=== PATIENT | male | born 1935 | race Caucasian/White ===

== ENCOUNTER 2017-10-04 09:46 | Emergency (ER) | payer MEDICARE, OTHER, SELFPAY ==
[2017-10-04 09:47] VITALS: BP 162/105; PULSE 105; RESP 16; TEMP 36.4; O2SAT 98; BMI 23.6
--- NOTE | 2017-10-04 09:56 | RAD_ITS ---
STUDY: X-RAY - ABDOMEN/PELVIS REASON FOR EXAM: Male, 81 years old. Abdominal pain and constipation. TECHNIQUE: Two AP supine views of the abdomen and pelvis. COMPARISON: None. FINDINGS: Normal visualized lung bases. There is an unremarkable bowel gas pattern. There is no demonstrated free abdominal air. There is no obvious organomegaly, mass or dilated bowel. Multiple calcifications are visible in left upper quadrant probably secondary to splenic granulomas. There are calcified phleboliths in the pelvis. There are diffuse degenerative changes of the visualized lumbar spine. The bones appear osteopenic. RAD/Abdomen Single View IMPRESSION: Minimal stool is visible, making constipation unlikely. Electronically Signed: Shalini Chavez MD at 10:57 EDT , Service support ,
--- NOTE | 2017-10-04 10:09 | ED.VISSUMM ---
- ER Visit Summary Date of Service: 10/04/17 Chief Complaint: Abdominal discomfort and constipation History of Present Illness: The patient is a 81 M who presents because he has not had the results he expected after using glycerin tablets, glycerin suppositories and MiraLAX. He states he has been having difficulty since September 20. He denies nausea vomiting. He states he is still passing gas. He complains of abdominal discomfort and sense of uneasiness. He denies any dysuria, frequency, urgency hematuria. He reported that he believes he is impacted because when he inserted a glycerin suppository he had significant resistance. Please read written note for complete detail Physical Examination: Vital signs remarkable for an elevated blood pressure 162/105. Abdomen is soft nontender with decreased bowel sounds and slight tympany on percussion. There is no evidence of umbilical or inguinal hernia. exam is unremarkable. Rectal exam is remarkable for prior hemorrhoids. Digital exam reveals a significantly enlarged prostate. There is no stool in the rectal vault. Test Results: Single view x-ray of the abdomen reveals massive gas pattern with increased fecal matter Emergency Department Course and Treatment: No view x-ray of the abdomen was obtained to determine if he has significant amount of stool present or not. Treatment Plan: Patient was instructed to glass of MiraLAX every 1-2 hours until he has results Disposition: To home Impression: Abdominal discomfort secondary to obstipation/constipation This note was generated with [employer] dictation software. It may contain incorrect words, spelling, and punctuation that were not noted in review of the chart prior to signing ED Disposition - Plan for ED Patient: Disposition: Home or Assisted Living Chief Complaint: Constipation Instructions: ED Constipation Referrals: Skip Bishop MD [Primary Care Provider] - Additional Instructions: Drink 1 glass of MiraLAX every 1-2 hours until you have results
--- NOTE | 2017-10-04 10:13 | NURSING ---
NO LW OR POA
== END 2017-10-04 10:48 | disposition home or self-care (01) ==
PROVIDERS: Emergency Provider Emergency Medicine; Family Provider Family Medicine; PCP Family Medicine
DX: K59.00 Constipation, unspecified (principal); R10.9 Unspecified abdominal pain; N40.0 Benign prostatic hyperplasia without lower urinary tract symptoms; Z79.899 Other long term (current) drug therapy
CPT/HCPCS: 74018; 99282

== ENCOUNTER 2017-10-09 03:56 | Emergency (ER) | payer MEDICARE, OTHER, SELFPAY ==
[2017-10-09 03:57] VITALS: BP 191/92; PULSE 82; RESP 16; TEMP 36.3; O2SAT 98; BMI 23.2
--- NOTE | 2017-10-09 04:44 | ED.VISSUMM ---
- ER Visit Summary Date of Service: 10/09/17 Chief Complaint: [] Urinary obstruction History of Present Illness: The patient is a 81 M presents with a urinary retention for the last 3 weeks gradual intermittent. Suprapubic. He has a history of enlarged prostate and sees urology. He was seen in the emergency department a few days ago with constipation but this resolved with MiraLAX. He was started on antibiotic today for urinary tract infection as an outpatient Physical Examination: Vital signs reviewed General: Well-nourished well-developed Head: Normocephalic atraumatic Eyes: Pupils equal round and reactive to light extraocular movements intact ENT: TMs clear no hemotympanum no trauma Neck: Nontender full range of motion Cardiovascular: Regular rate rhythm no murmurs normal S1-S2 Respiratory: No distress clear to auscultation bilaterally chest nontender Abdomen: Soft pubic tenderness normal bowel sounds no masses Back: Nontender no CVA tenderness Extremities: Nontender active range of motion ?4 extremities no trauma Skin: Normal color no trauma Neuro alert oriented cranial nerves II through XII intact normal strength sensation reflexes Test Results: [] Emergency Department Course and Treatment: [] Bedside ultrasound showed a large bladder. Blackwood catheter placed with a liter out initially. Patient felt much better will be discharged with a leg bag. He will follow up with urology. Treatment Plan: [] Disposition: [] Impression: [] Acute urinary obstruction secondary to BPH This note was generated with [employer] dictation software. It may contain incorrect words, spelling, and punctuation that were not noted in review of the chart prior to signing ED Disposition - Plan for ED Patient: Chief Complaint: Complaint Referrals: Skip Bishop MD [Primary Care Provider] -
--- NOTE | 2017-10-09 04:45 | ED.DEP ---
ED Disposition - Plan for ED Patient: Disposition: Home or Assisted Living Chief Complaint: Complaint Instructions: ED Retention Urinary Male Referrals: Skip Bishop MD [Primary Care Provider] - Delta Yusuf MD [STAFF PHYSICIAN] -
[2017-10-09 05:28] VITALS: RESP 16
== END 2017-10-09 05:28 | disposition home or self-care (01) ==
PROVIDERS: Emergency Provider Emergency Medicine; Family Provider Family Medicine; PCP Family Medicine
DX: N40.1 Benign prostatic hyperplasia with lower urinary tract symptoms (principal); N13.8 Other obstructive and reflux uropathy; N39.0 Urinary tract infection, site not specified; Z79.899 Other long term (current) drug therapy
CPT/HCPCS: 51702; 99283

== ENCOUNTER 2017-10-25 09:35 | Day surgery (SDC) | payer MEDICARE, OTHER, SELFPAY ==
--- NOTE | 2017-10-21 13:19 | EKG12_ITS ---
Test Reason : PRE-OP Blood Pressure : / mmHG Vent. Rate : 075 BPM Atrial Rate : 075 BPM P-R Int : 158 ms QRS Dur : 086 ms QT Int : 382 ms P-R-T Axes : 073 043 049 degrees QTc Int : 426 ms Normal sinus rhythm with sinus arrhythmia Normal ECG Confirmed by REJI COLEY, CHELSIE ([id number]), newspaper editor managing ZOILA STEWART ([id number]) on 10/22/2017 2:33:21 PM Referred By: Delta Yusuf Confirmed By:CHELSIE MENDOZA MD
[2017-10-25] VITALS (11 sets, daily range): BP systolic 125–160; BP diastolic 72–93; PULSE 64–102; RESP 16–18; TEMP 36.2–36.9; O2SAT 96–100; BMI 23.5; BMI 23.4
--- NOTE | 2017-10-25 | IMM_PTH ---
PATIENT: SIVAKUMAR PEREZ LOC: [facility] [place] U#:[id number] AGE/SX: 81/M ROOM: RE10/25/[address]: Dr. Delta Yusuf MD : 1935 BED: DIS: 10/26/2017 SPEC #: [id number] RECD: 10/29/17 15:46 STATUS: DAYNA REQ #: [id number] BROWN: 10/25/17 00:[address]: Delta Yusuf DEPT: IMMUNOHISTOCHEMISTRY RECD BY: Madelin Morgan ENTERED: 10/29/17 15:47 SP TYPE: IMMUNO OTHR DR: Dr. Skip Bishop MD Tissues: A - Prostate, NOS Procedures: CK20 (add) CK7 (add) PSA (add) S-100 (add) PSA (initial) PHYSICIAN & INSTITUTION [place] [id number] SPECIMEN INFORMATION: Tissue Source: A ? Resection prostate tissue Clinical Info: Urinary retention, BPH with obstruction, nodular prostate with obstruction, elevated PSA Specimen Number: [id number] CPT code: 53554, 51555 x4 METHODOLOGY: Deparaffinized sections of prefer/formalin-fixed tissue or PAP/DQ stained slides are incubated with monoclonal/polyclonal antibodies/oligonucleotide probes. Localization is made via biotin free immunoperoxidase method. Appropriate controls are performed and reacted as expected. Results on target cell population are indicated in the following table: RESULTS: ANTIBODY / CLONE RESULT Block A1 PSAP (PASE/4LJ) positive PSA (ER-PR8) positive CK7 (OV-TL12/30) negative CK20 (KS20.8) negative S-100 (4C4.9) negative These tests were developed and their performance characteristics determined by [facility]. They may not have been cleared or approved by the U.S. Food and Drug Administration. The FDA has determined that such clearance or approval is not necessary. INTERPRETATION: A. Prostate tissue, resection: Prostatic carcinoma, Cornell grade 10 (5+5). AM:navjot 10/31/17
[2017-10-25] MEDS: Cefazolin 2 GM in 0.9% Normal Saline 100 ML IV (10:46)
--- NOTE | 2017-10-25 11:20 | PROS_PTH ---
PATIENT: SIVAKUMAR PEREZ COLIN LOC: [facility] [place] U#:[id number] AGE/SX: 81/M ROOM: RE10/25/[address]: Dr. Delta Yusuf MD : 1935 BED: DIS: 10/26/2017 SPEC #: [id number] RECD: 10/28/17 07:38 STATUS: DAYNA REMarcus #: [id number] BROWN: 10/25/17 11:[address]: Delta Yusuf DEPT: SURGICAL PATHOLOGY RECD BY: Sammy Gomez ENTERED: 10/28/17 11:04 SP TYPE: TURP OTHR DR: Dr. Skip Bishop MD Tissues: A - Prostate, NOS B - PROSTATE BIOPSY Procedures: Surgery Specimen Level IV HEADER OPERATION: Cysto, TUR prostate, Olympus, finger-guided transrectal prostate PRE-OP DIAGNOSIS: Urinary retention, BPH with obstruction, nodular prostate with obstruction, elevated PSA TISSUE SUBMITTED: A ? Resection prostate tissue, B ? Prostate biopsy MICROSCOPIC DIAGNOSIS A. Prostate, transurethral resection: Poorly differentiated prostatic adenocarcinoma: Michael grade: 10 (5+5) Number of chips involved by carcinoma: 100% Other findings: Benign nodular hyperplasia and mild chronic inflammation. Urothelium with no significant pathologic change. B. Prostate, needle core biopsy: Adenocarcinoma: [place] grade: 10 (5+5) Cores involved: 2/2 Tissue involved: 50% Greatest tumor length: 7 mm AM:navjot 10/29/17 COMMENT A. Immunohistochemistry ([id number]) supports the above diagnosis. MICROSCOPIC DESCRIPTION Slides are reviewed. GROSS DESCRIPTION A - Received is one container labeled with the patient's name and designated prostate tissue. The specimen consists of multiple irregular fragments of pink-chino, rubbery, soft tissue that in aggregate weigh 10.4 gm and measure in aggregate 6 x 6 x 0.7 cm. The entire specimen is submitted in ten cassettes. B - Received is one container designated prostate biopsy. The specimen consists of two elongated fragments of light chino-white soft tissue each measuring 1.5 cm in length and 0.1 cm in diameter. The specimen is totally submitted in one cassette. / AM:navjot 10/28/17 TC:0 CPT: 54463 x2
--- NOTE | 2017-10-25 12:00 | OP.PCM_ITS ---
Report of Operation Date of Procedure: 10/25/17 Pre-Operative Diagnosis: BPH with obstruction, hard prostate nodules Post-Operative Diagnosis: Transurethral resection of the prostate and transrectal prostate biopsy Surgery/Procedure Performed:: Transurethral resection of the prostate and transrectal prostate biopsy Description of Surgical Findings:: 81-year-old male was found to have BPH with obstruction on exam is as a very hard prostate concerning for prostate cancer. Today when taken the surgery to do the resection of the prostate to hopefully restore normal voiding and also into a prostate biopsy to rule out prostate cancer. I suspect he may have prostate cancer. 81-year-old male taken back to the operating room at the smooth induction of general anesthesia he was placed supine on the table and then in dorsal lithotomy position. The penis and testicles were prepped and draped in usual sterile fashion. Went into the bladder with a 26 Danish rigid resectoscope. The entire length of the urethra is normal the pendulous urethra is normal the sphincter was intact, inside of the prostate had obstruction from prostatic growth. I then got inside the prostate and the bladder, the prostate was extending onto the bladder neck and extending into the trigone area there was no identifiable ureter orfice. I then resected the prostate growth into the trigone and resect the trigone and then identified the right ureteral orifice which was resected and identified the left ureteral orifice was also resected both of these were clear of tumor and effluxing nicely, decided not to place stents, I then resected back to the verumontanum had very little lateral lobes most of the growth was from the prostate into the bladder trigone area causing obstruction once this was resected open then he had a nice wide open channel from the verumontanum into the bladder and very little resection towards the apex of the prostate given the concern for prostate cancer to make ozzie he maintains good bladder control. After resecting the prostate tissue then placed a three-way catheter into the bladder with 30cc with continuous bladder irrigation urine and the urine was nice and clear. I then double gloved did a digital rectal exam of the prostate and then used a guided figure biopsy and the 2 biopsies of the prostate transrectally. Patient was then taken back to the PACU in good condition with continuous bladder irrigation tissue from the prostate was sent off and tissue from the prostate biopsies were sent off. Type of Anesthesia:: General Drains: 3 way noriega. - Admit VTE Documentation VTE Present on Admission: No VTE Mechan Device Prophylaxis: SCD's VTE Pharm Prophylaxis ordered?: No Reason prophylaxis not ordered:: Treatment Not Indicated
[2017-10-25] MEDS: 0.9% Normal Saline 1,000 ML 75 ML IV (17:11)
[2017-10-25] MEDS: Tamsulosin HCl 0.4 MG Capsule PO (17:11)
[2017-10-26 03:00] VITALS: BP 117/75; PULSE 66; RESP 16; TEMP 36.4; O2SAT 97
[2017-10-26] MEDS: 0.9% Normal Saline 1,000 ML 75 ML IV (03:10)
--- NOTE | 2017-10-26 05:59 | NURSING ---
CBI stopped this am per physician order.
[2017-10-26 08:32] VITALS: BP 117/67; PULSE 60; RESP 18; TEMP 36.4; O2SAT 96
[2017-10-26] MEDS: Docusate Sodium 100 MG Capsule PO (08:37)
[2017-10-26] MEDS: Tamsulosin HCl 0.4 MG Capsule PO (08:37)
[2017-10-26] MEDS: Ciprofloxacin 500 MG Tablet PO (08:37)
[2017-10-26] MEDS: Finasteride 5 MG Tablet PO (08:37)
[2017-10-26] MEDS: Pantoprazole Sodium 40 MG Tablet PO (08:37)
--- NOTE | 2017-10-26 10:13 | PCM.DC.URO ---
Discharge Diet: Light diet - advance as tolerated Instructions: Transurethral Resection of the Prostate (TURP): Home Recovery Allergies/Adverse Reactions: Allergies No Known Allergies Allergy (Verified 10/25/17 10:00) Medications to take at Discharge Ciprofloxacin [Cipro] 250 mg PO BID 10/21/17 Ciprofloxacin [Cipro] 500 mg PO BID #14 tab 10/26/17 The following prescriptions were given: Ciprofloxacin [Cipro] 500 mg PO BID #14 tab Primary Care Physician: Skip Bishop MD [Primary Care Provider] - Please Follow Up With: Delta Yusuf MD When: SaturdayDecember 04 at 2:00 pm
[2017-10-26 14:34] VITALS: BP 125/69; PULSE 77; RESP 18; TEMP 35.6; O2SAT 97
== END 2017-10-26 14:45 | disposition home or self-care (01) ==
LOC: SDC 09:35 → AC 09:38 → MS2 12:48
PROVIDERS: Family Provider Family Medicine; PCP Family Medicine; Visit Provider Urology
PROC: (CPT 52630; principal; 2017-10-25 11:10)
DX: C61 Malignant neoplasm of prostate (principal); N41.1 Chronic prostatitis; N40.1 Benign prostatic hyperplasia with lower urinary tract symptoms; N40.3 Nodular prostate with lower urinary tract symptoms; N39.498 Other specified urinary incontinence; R33.8 Other retention of urine; R35.0 Frequency of micturition; R35.1 Nocturia; Z79.2 Long term (current) use of antibiotics; Z79.899 Other long term (current) drug therapy
CPT/HCPCS: 52630; 88305; 88341; 88342; 93005; J7030; J7120; J2405

== ENCOUNTER 2017-10-27 13:00 | Emergency (ER) | payer MEDICARE, OTHER, SELFPAY ==
[2017-10-27 13:01] VITALS: BP 135/85; PULSE 91; RESP 16; TEMP 37.1; O2SAT 98; BMI 23.6
[2017-10-27] MEDS: Lidocaine Jelly 2% 20 ML Syringe (URO-JET) 20 APPLIC TOPICAL (13:25)
[2017-10-27 13:48] LABS: Bacteria 0 SEEN /hpf (None Seen); Mucous, Urine 0 SEEN /hpf (<or=2+); Squamous Epithelial Cells - UA 0 SEEN /hpf (0-5)
[2017-10-27 13:50] LABS: Color, Urine Red (Yellow); Glucose, Dipstick Normal (Normal); Ketone-Dipstick Negative (Negative); Leukocyte Esterase-Dipstick 100 /ul (Negative); Nitrite-Dipstick Positive (Negative); Occult Blood-Urine 250 /ul (Negative); Protein-Dipstick 100 mg/dl (Negative); Specific Gravity, Urine 1.015 (1.002-1.030); Urine Bilirubin Dipstick Negative (Negative); Urine Clarity Cloudy (Clear); Urine Urobilinogen Normal (Normal)
--- NOTE | 2017-10-27 13:56 | ED.VISSUMM ---
- ER Visit Summary Date of Service: 10/27/17 Chief Complaint: Urinary retention History of Present Illness: The patient is a 81 M presents to the emergency department with acute urinary retention. The patient had a transurethral resection of the prostate on Saturday by Dr. Yusuf. He was discharged yesterday. Prior to discharge, the Blackwood was able to be removed and he was able to urinate. He states he urinated yesterday without issue. He was able to urinate some this morning and noticed a scant amount of blood. He states this afternoon, he was unable to pass any urine. Had increasing suprapubic fullness and some pain. He denies any fevers or chills. He is not on anticoagulants. Physical Examination: Exam is relatively unremarkable. Well-appearing male no acute distress. Head is normocephalic, atraumatic. Pupils equal and reactive, extraocular muscles intact. Neck supple. Heart regular rate and rhythm. Lungs clear. Abdomen soft, suprapubic fullness but no rebound guarding or peritoneal signs. No CVA tenderness. Extremities show no edema. Test Results: [] Emergency Department Course and Treatment: The patient had evidence of urinary obstruction. A Blackwood was able to be replaced. The patient had about 700 cc of blood-tinged urine output. He had complete resolution of symptoms. Urine does show some nitrites. The patient is already on Cipro. As he is recently postop, I did discuss the patient with Dr. Yusuf. Patient will continue his oral antibiotics. We will leave the Blackwood in place. He will call the office tomorrow morning for close follow-up. Family is comfortable with this plan of care. Treatment Plan: [] Disposition: Discharge Impression: 1. Acute urinary retention This note was generated with [employer] software. It may contain incorrect words, spelling, and punctuation that were not noted in review of the chart prior to signing ED Disposition - Plan for ED Patient: Chief Complaint: Complaint Instructions: ED Catheter Care Blackwood Referrals: Delta Yusuf MD [STAFF PHYSICIAN] - (Call tomorrow)
--- NOTE | 2017-10-27 13:59 | ED.DCSUM_ITS ---
- ER Visit Summary Date of Service: 10/27/17 Chief Complaint: Urinary retention History of Present Illness: The patient is a 81 M presents to the emergency department with acute urinary retention. The patient had a transurethral resection of the prostate on Saturday by Dr. Yusuf. He was discharged yesterday. Prior to discharge, the Blackwood was able to be removed and he was able to urinate. He states he urinated yesterday without issue. He was able to urinate some this morning and noticed a scant amount of blood. He states this afternoon, he was unable to pass any urine. Had increasing suprapubic fullness and some pain. He denies any fevers or chills. He is not on anticoagulants. Physical Examination: Exam is relatively unremarkable. Well-appearing male no acute distress. Head is normocephalic, atraumatic. Pupils equal and reactive, extraocular muscles intact. Neck supple. Heart regular rate and rhythm. Lungs clear. Abdomen soft, suprapubic fullness but no rebound guarding or peritoneal signs. No CVA tenderness. Extremities show no edema. Test Results: [] Emergency Department Course and Treatment: The patient had evidence of urinary obstruction. A Blackwood was able to be replaced. The patient had about 700 cc of blood-tinged urine output. He had complete resolution of symptoms. Urine does show some nitrites. The patient is already on Cipro. As he is recently postop , I did discuss the patient with Dr. Yusuf. Patient will continue his oral antibiotics. We will leave the Blackwood in place. He will call the office tomorrow morning for close follow-up. Family is comfortable with this plan of care. Treatment Plan: [] Disposition: Discharge Impression: 1. Acute urinary retention This note was generated with [employer] software. It may contain incorrect words, spelling, and punctuation that were not noted in review of the chart prior to signing ED Disposition - Plan for ED Patient: Chief Complaint: Complaint Instructions: ED Catheter Care Blackwood Referrals: Delta Yusuf MD [STAFF PHYSICIAN] - (Call tomorrow)
[2017-10-27 14:01] LABS: Red Blood Cells-Urine > 100 SEEN /hpf (0-5); White Blood Cells 0-5 SEEN /hpf (0-5)
[2017-10-27 14:34] VITALS: BP 130/78; PULSE 68; RESP 16; O2SAT 95
== END 2017-10-27 14:35 | disposition home or self-care (01) ==
PROVIDERS: Emergency Provider Emergency Medicine
DX: R33.9 Retention of urine, unspecified (principal); N40.1 Benign prostatic hyperplasia with lower urinary tract symptoms; I10 Essential (primary) hypertension; Z98.890 Other specified postprocedural states; Z79.2 Long term (current) use of antibiotics; Z79.899 Other long term (current) drug therapy
CPT/HCPCS: 51702; 81001; 99284; A4216

== ENCOUNTER → 2017-11-12 15:40 | Outpatient (CLI) | payer MEDICARE, OTHER, SELFPAY ==
--- NOTE | 2017-11-12 15:44 | CT_ITS ---
STUDY: CT ABDOMEN AND PELVIS WITH CONTRAST REASON FOR EXAM: Male, 82 years old. New diagnosis prostate cancer. Prior left inguinal hernia repair. RADIATION DOSAGE (If Supplied By Facility): CTDIvol = ( 15.05 ) mGy, DLP = ( 1421.18 ) mGycm TECHNIQUE: Transaxial images were obtained from the dome of the diaphragm to the symphysis pubis without oral contrast. 100ml ml of Isovue 300 contrast was administered. Sagittal and coronal images were reconstructed. Individualized dose optimization techniques were used for this CT. COMPARISON: 2 AP supine views of the abdomen and pelvis October 04, 2017. FINDINGS: There is pleural-parenchymal scarring at the lateral periphery of the inferior right lung base, as well as minor curvilinear scarring in the posterior medial inferior right lower lobe. Calcified granulomata are also seen in the basilar right lower lobe. There are shallow, fat-containing eventrations of the bilateral posterior hemidiaphragms. The heart size is normal. Mild atherosclerotic calcification in the coronary arteries and distal descending thoracic aorta. Normal liver. The patent portal vein diameter is 14.5 mm. Normal gallbladder and extrahepatic biliary system. There are multiple benign calcified granulomata of the spleen. Normal pancreas. Normal bilateral adrenal glands. Normal right kidney. Normal left kidney. No hydronephrosis. Normal visualized stomach. Normal small intestine. There are multiple left and sigmoid colonic diverticula consistent with diverticulosis. The appendix is visualized and appears normal. There is mild to moderate atherosclerotic calcification of the abdominal aorta and iliofemoral arteries with elongation and tortuosity, but without a demonstrated aneurysm. The infrarenal abdominal aortic diameters reach 2.35 x 2.3 cm. The right common iliac artery is 1.75 x 1.65 cm, while the left common iliac is 1.4 x 1.4 cm. There is 1.45 x 1.45 cm diameter fusiform ectasia of the left internal iliac artery, with mild medial mural thrombus. Normal inferior vena cava. Normal retroperitoneum. Medial thickness of the nondistended urinary bladder 6.5 mm. Apparent intraluminal density in the anterior base of the bladder on the reformations may be excreted contrast in the ureteral jets. The prostate gland is 4.1 x 4.4 x 3.95 cm (R35 cc). There is a shallow direct right-sided inguinal hernia containing adipose tissue. There are multilevel degenerative changes of the visualized lumbar spine. There is moderate depression of the superior L3 vertebral endplates, and more mild depression of the superior L2 endplate. There are degenerative changes of the sacroiliac joints, hips, and symphysis. CT/Abdomen/Pelvis W IV Cont ONLY IMPRESSION: 1. Prostate gland is upper normal in size without a focally defined mass. 2. Borderline mural thickening of the urinary bladder. Apparent intraluminal density in the anterior base of the bladder is thought to be excreted contrast in the bilateral ureteral jets rather than a mass. If clinically suspicious, bladder ultrasound could be useful. 3. No hydronephrosis. 4. Left and sigmoid colonic diverticulosis without acute diverticulitis. The appendix is normal. 5. Findings old calcified granulomatous disease. There is additional scarring in the visualized right lower lobe, as noted above. 6. Mild to moderate atherosclerotic calcification as well as fusiform ectasia of the thoracoabdominal aorta and iliofemoral arteries, as noted. 7. Shallow, fat-containing direct right inguinal hernia. 8. Fracture deformities of the L2 and L3 vertebra, the latter more significant. Additional degenerative changes in the spine and pelvis. Electronically Signed: Elias Dumas MD at 14:12 EDT , Service support ,
[2017-11-12 16:06] LABS: CREATININE FINGERSTICK 1.2 mg/dL (0.70-1.30); EGFR FINGERSTICK > 60.0000 mL/min (>60)
== END ==
PROVIDERS: Visit Provider Nurse Practitioner Adult Health
DX: R61 Generalized hyperhidrosis (principal)
CPT/HCPCS: 74177; Q9967

== ENCOUNTER → 2017-11-15 07:50 | Outpatient (CLI) | payer MEDICARE, OTHER, SELFPAY ==
--- NOTE | 2017-11-15 07:55 | NM_ITS ---
CLINICAL: 82-year-old male with reported history of primary prostate carcinoma. WHOLE BODY 99m Tc MDP RADIONUCLIDE BONE SCINTIGRAPHY COMPARISON: CT of the abdomen-pelvis report 11/12/2017 FINDINGS: Following the intravenous administration of 25.3 mCi of 99m Tc MDP, whole body bone images reveal: 1. Increased radiopharmaceutical concentration is demonstrated in the third lumbar vertebra posteriorly-anteriorly in the midline, to the right midline, right iliac crest, the right anterior-posterior first sacral segment. Corresponding sclerotic changes noted in the right iliac crest third lumbar vertebra (with associated compressive deformity) on review of CT of the abdomen-pelvis dated 11/12/2017 2. Enhanced uptake is demonstrated in the acromioclavicular and sternoclavicular compartments of both shoulders, the bilateral wrist articulations, the left knee. 3. The remaining skeletal structures are scintigraphically unremarkable with normal-appearing renal images and urinary bladder activity identified. NM/Bone Scan Whole Body IMPRESSION: 1. 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 2. 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 Electronically Signed: Kem Peraza DO at 13:20 EDT Tel , Service support ,
== END ==
PROVIDERS: Visit Provider Nurse Practitioner Adult Health
DX: C61 Malignant neoplasm of prostate (principal)
CPT/HCPCS: 78306

== ENCOUNTER → 2017-11-18 17:05 | Outpatient (CLI) | payer MEDICARE, OTHER, SELFPAY | PROVIDERS: Visit Provider Urology | DX: C61 Malignant neoplasm of prostate (principal) | CPT/HCPCS: 36415; 84153 ==

== ENCOUNTER → 2017-12-20 10:29 | Outpatient (CLI) | payer MEDICARE, OTHER, SELFPAY ==
[2017-12-20 12:22] LABS: PSA,Total- Diagnostic 3.87 ng/mL (0.0-4.0)
== END ==
PROVIDERS: Family Provider Internal Medicine; PCP Internal Medicine; Visit Provider Urology
DX: C61 Malignant neoplasm of prostate (principal)
CPT/HCPCS: 36415; 84153

== ENCOUNTER → 2017-12-27 09:52 | Outpatient (CLI) | payer MEDICARE, OTHER, SELFPAY ==
--- NOTE | 2017-12-27 10:45 | MRI_ITS ---
STUDY: MR PELVIS WITHOUT CONTRAST REASON FOR EXAM: Male, 82 years old. Newly diagnosed prostrate carcinoma. TECHNIQUE: Standardized fat and water weighted pulse sequences were obtained in all 3 orthogonal planes. COMPARISON: CT abdomen/pelvis: 11/12/2017. FINDINGS: The prostate is enlarged, 5.7 x 4.8 x 5.1 cm in size and is seen irregularly extending superiorly into the bladder base/lumen. There is heterogenous signal intensity of the central and peripheral zones of the gland evident with multiple degenerated/cystic nodules. A few T2 weighted suspicious hypointense foci are seen within the peripheral zone of the gland, the largest is 1.4 x 1.2 cm present in the left side. There is prostatic capsular smooth bulge. No significant stranding of fat outside the prostrate demonstrated. Seminal vesicles appear symmetric bilaterally. No significant pelvic lymphadenopathy demonstrated. There is diffuse wall thickening of the urinary bladder. Several small bladder diverticuli are present bilaterally. Unremarkable visualized small intestine. There are multiple colonic diverticula of the sigmoid colon consistent with chronic diverticulosis. Increased colonic stool volume. There is no pelvic fluid. There is diffuse atherosclerotic calcification of the pelvic arteries with elongation and tortuosity. There are diffuse degenerative changes of the visualized lumbar spine. MRI/Pelvis (Routine) IMPRESSION: 1. Abnormal appearing enlarged prostrate gland seen with extension into the bladder lumen and with suspicious T2 weighted hypointense nodules, largest is 1.4 cm at the left side. Biopsy with tissue diagnosis is recommended. 2. Smooth bulging of the glandular capsule. No demonstrated significant pelvic lymphadenopathy. 3. Diffuse urinary bladder wall thickening. Multiple small bladder diverticuli. 4. Significant sigmoid diverticulosis. Electronically Signed: Paramjit Cramer MD at 9:56 EDT Tel , Service support ,
== END ==
PROVIDERS: Family Provider Internal Medicine; PCP Internal Medicine; Visit Provider Urology
DX: C61 Malignant neoplasm of prostate (principal)
CPT/HCPCS: 72195

== ENCOUNTER → 2018-01-22 08:13 | Outpatient (CLI) | payer MEDICARE, OTHER, SELFPAY ==
[2018-01-17 11:30] LABS: Absolute Lymphocyte Count 1.86 X10^3/ul (0.83-4.51); Absolute Neutrophil Count 3.2 X10^3/uL (2.0-7.7); Basophil# 0.02 X10^3/uL; Basophil% 0.4 % (0-1); Eosinophil# 0.12 X10^3/uL; Eosinophils% 2.1 % (0-5); Hematocrit 40.1 % (40-54); Lymphocyte # 1.86 X10^3/ul (4.0); Lymphocyte % 32.7 % (19-41); Mean Corp Hgb Conc 32.4 g/gl (32-36); Mean Corpuscular Hgb 30.5 pg (27.0-32.0); Mean Corpuscular Volume 94.1 fL (80-94); Mean Platelet Vol. 10.4 fl (6.2-12.0); Monocyte# 0.45 X10^3/uL; Monocyte% 7.9 % (0-10); Neutrophil # 3.24 X10^3/uL (2.7-7.7); Neutrophil % 56.9 % (47-70); Platelet Count 223 K/mm3 (150-450); RBC Distribution Width CV 13.6 % (11.6-14.6); RBC Distribution Width SD 46.6 fl (35.1-43.9); Red Blood Count 4.26 M/mm3 (4.6-6.2); White Blood Count 5.7 K/mm3 (4.4-11.0)
[2018-01-17 11:31] LABS: POSITIVE COUNT NO; POSITIVE DIFFERENTIAL NO; POSITIVE MORPHOLOGY NO
[2018-01-17 11:44] LABS: Creatinine, Serum 1.13 mg/dL (0.70-1.30); EST Glomerular Filtration Rate 66 mL/min (>60); Est Glom Filt Rate - Afr Amer 80 mL/min (>60)
--- NOTE | 2018-01-22 08:14 | CT_ITS ---
STUDY: CT PELVIS WITH CONTRAST REASON FOR EXAM: Male, 82 years old. Radiation treatment examination for prostate cancer. RADIATION DOSAGE (If Supplied By Facility): CTDIvol = ( 24.13 ) mGy, DLP = ( 929.81 ) mGycm TECHNIQUE: Transaxial imaging of the pelvis was performed without oral contrast. 100 ml of Isovue 300 contrast was administered intravenously. Individualized dose optimization techniques were used for this CT. COMPARISON: Comparison is made with prior study dated November 12, 2017. FINDINGS: Normal urinary bladder. The prostate measures 4.1 cm x 3.5 cm. Metallic seeds are seen within the prostate gland. The gland causes indentation at the bladder base. Is evidence of a dilatation of the visualized portion of the left ureter. No contrast is seen within the left ureter. Normal visualized small intestine. There are multiple colonic diverticula of the sigmoid colon consistent with chronic diverticulosis. There is no pelvic fluid. There is no pelvic lymphadenopathy or mass lesion. There is diffuse atherosclerotic calcification of the pelvic arteries. Ectasia of both common iliac arteries. Small to moderate size right inguinal hernia containing nonobstructed bowel. There are diffuse degenerative changes of the visualized lumbar spine. There is a 1.9 cm sclerotic focus in the right iliac bone suggestive of metastatic disease. A small 1 cm sclerotic lesion is also seen in the inferior aspect of the right iliac wing. Subcentimeters sclerotic focus involving the posterior aspect of the right iliac bone adjacent to the right sacroiliac joint. Several small sclerotic lesions are seen in the region of the left acetabulum. Bony metastasis should be ruled out. CT/CT Pelvis W/CONT Therapy IMPRESSION: Enlarged prostate. Metallic seeds are seen within the prostate. Dilated left ureter. 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 Electronically Signed: Venu Quinones MD at 8:36 EDT Tel [phone], Service support ,
== END ==
PROVIDERS: Family Provider Internal Medicine; PCP Internal Medicine; Visit Provider Radiology Radiation Oncology
DX: Z01.818 Encounter for other preprocedural examination (principal); C61 Malignant neoplasm of prostate
CPT/HCPCS: 36415; 51600; 72193; 82565; 85025; Q9967

== ENCOUNTER 2018-02-14 15:37 | Observation (INO) | payer MEDICARE, OTHER, SELFPAY ==
[2018-02-14] VITALS (8 sets, daily range): BP systolic 136–156; BP diastolic 67–104; PULSE 63–97; RESP 16–23; TEMP 36.2–36.6; O2SAT 95–99; BMI 24.3; BMI 24.8; BMI 24.9
--- NOTE | 2018-02-14 16:01 | RAD_ITS ---
STUDY: X-RAY CHEST REASON FOR EXAM: Male, 82 years old. Chest pain/pressure. TECHNIQUE: Single AP portable view of the chest. COMPARISON: None. FINDINGS: Lung leigh are well-expanded without major consolidation, focal atelectasis or pleural effusion. Calcified granulomata bilaterally. Normal size heart. Numerous calcified mediastinal and hilar lymph nodes. Normal visualized pulmonary arteries. There is atherosclerotic calcification of the aortic arch with tortuosity. There are diffuse degenerative changes of the visualized thoracic spine. Normal visualized ribs, clavicles, and shoulders. There is no demonstrated abnormality of the visualized soft tissue structures of the upper abdomen. RAD/Chest 1 View (Portable) IMPRESSION: Negative for consolidation, focal atelectasis, cardiomegaly or pleural effusion. Stigmata of prior granulomatous disease. Atherosclerotic changes of the thoracic aorta. Electronically Signed: Radha Cancino MD at 16:56 EDT , Service support ,
--- NOTE | 2018-02-14 16:01 | ED.VIS.GEN ---
History of Present Illness Chief Complaint: Palpitations Informant: Patient Onset: Today, Hours - 4-6 Context: Gradual Onset - since after 9am radiation therapy sometime Timing: Intermittent Quality: beating hard and can feel it throughout my body; not irregular/skipping Location: chest Current Severity: Moderate Maximum Severity: Moderate Worsened by: nothing Relieved by: nothing Associated Symptoms: chest pressure, gen weakness Narrative: Currently getting radiation therapy for bladder/prostate cancer, as described by the patient. He is only getting radiation therapy in his suprapubic region, his last treatment was this morning and symptoms started afterwards. He has never had these symptoms before. He has no history of heart problems and has never had a stress test. Denies any lightheadedness, near syncope, shortness of breath. Mostly the discomfort in his chest is nonpleuritic but there is a slight right-sided discomfort that he gets when taking a deep breath. No leg pain or swelling. No history of DVT or PE. Not undergoing systemic chemotherapy. No nausea, vomiting, arm discomfort, neck or jaw discomfort, or back discomfort. No changes with exertion/rest. - Past Medical History (1) Prostate cancer Status: Chronic Past Medical History - Allergies and Home Meds Allergies/Adverse Reactions: Allergies No Known Allergies Allergy (Verified 02/14/18 15:37) Primary Care Physician: Sarath Wallace MD [Primary Care Provider] - Lives: Alone Smoking Status: Never smoker Alcohol: None Drugs: None Review of Systems All systems negative except as indicated General: Reports: Malaise - generalized weakness ENT: Denies: Rhinorrhea, Sore throat Cardiovascular: Reports: Chest pain, Palpitations. Denies: Heart racing Respiratory: Denies: Dyspnea, Cough, Dyspnea on exertion, Orthopnea Gastrointestinal: Denies: Abdominal pain, Nausea, Vomiting, Diarrhea, Constipation, Melena, Hematochezia Musculoskeletal: Denies: Myalgias, Neck pain, Back pain, Swelling, Extremity Pain Skin: Denies: Rash Neurological: Denies: Headache, Parasthesia Endocrine: Denies: Polyuria, Polydipsia Hematologic: Denies: Easy bruising, Easy bleeding Allergy: Denies: Swelling of the mouth, Swelling of the tongue Physical Exam Vital Signs/Narrative: Vital Signs Temp Pulse Resp BP Pulse Ox 02/14/18 15:38 97.9 F 90 20 H 156/104 H 97 Inital Vital Signs reviewed: Yes General: Well nourished, Well developed Head: Normocephalic, Atraumatic Eyes: Perrl, EOMI ENT: Moist mucous membranes, No rhinorrhea Neck: Supple, Nontender, No lymphadenopathy, No JVD Cardiovascular: Regular rate, Regular rhythm - w/ occasional irregularity, No murmurs, Normal S1, Normal S2 Respiratory: No distress, CTA bilaterally, Chest nontender, - - no splinting w/ deep inspiration Abdomen: Soft, Nontender, Nondistended, Normal bowel sounds Back: Nontender, Normal Inspection. Negative for: CVA tenderness Extremities: Nontender - no calf tenderness, No edema Skin: Normal color, No rash Neurological: Alert, Oriented x3, Cranial nerves II-XII grossly intact, Normal Strength, Normal Sensation Psychological: Normal affect Diagnostic/Tx/Re-eval Impressions Chest X-Ray 02/14/18 16:01 IMPRESSION: Negative for consolidation, focal atelectasis, cardiomegaly or pleural effusion. Stigmata of prior granulomatous disease. Atherosclerotic changes of the thoracic aorta. Electronically Signed: Radha Cancino MD at 16:56 EDT , Service support , 02/14/18 16:01 Chest 1 View (Portable) [RAD] Stat Laboratory Results 02/14/18 02/14/18 02/14/18 Range/Units 16:15 16:15 16:15 WBC 4.9 (4.4-11.0) K/mm3 RBC 4.18 L (4.6-6.2) M/mm3 Hgb 13.0 (13.0-16.5) g/dl Hct 39.1 L (40-54) % MCV 93.5 (80-94) fL MCH 31.1 (27.0-32.0) pg MCHC 33.2 (32-36) g/gl RDW 13.3 (11.6-14.6) % RDW Differential 45.7 H (35.1-43.9) fl Plt Count 147 L (150-450) K/mm3 MPV 10.1 (6.2-12.0) fl Immature Gran % (Auto) 0.200 (0.0-0.9) % Neut % (Auto) 68.2 (47-70) % Lymph % (Auto) 18.3 L (19-41) % [place] % (Auto) 11.7 H (0-10) % Eos % (Auto) 1.4 (0-5) % Baso % (Auto) 0.2 (0-1) % Absolute Neuts (auto) 3.3 (2.0-7.7) X10^3/uL Absolute Lymphs (auto) 0.89 (0.83-4.51) X10^3/ul Total Counted Not Reportable D-Dimer Quant (PE/DVT) 0.58 H* (0.27-0.49) FEU/ug/m Sodium 144 (136-145) mmol/L Potassium 4.0 (3.5-5.1) mmol/L Chloride 107 (98-107) mmol/L Carbon Dioxide 29.0 (21.0-32.0) mmol/L Anion Gap 8 (5-15) BUN 22 H (7-18) mg/dL Creatinine 1.23 (0.70-1.30) mg/dL Estim Creat Clear Calc 46.30 ml/min Est GFR (MDRD) Af Amer 72 (>60) mL/min Est GFR (MDRD) Non-Af 60 (>60) mL/min BUN/Creatinine Ratio 17.9 (10-20) RATIO Glucose 91 (74-106) mg/dL Calcium 9.2 (8.5-10.1) mg/dL Troponin I < 0.015 (<0.045) ng/mL - Rhythm Strip Rhythm Strip: Sinus Rhythm Rate: 90 Ectopy: PVC(s) - EKG Initial EKG Interpretation: Sinus Rhythm, No Acute Injury Pattern, - - multifocal PVCs - Medical Decision Making Patient was given aspirin. Prior to getting nitroglycerin, he states that his chest pressure resolves. Troponin is negative, EKG shows no acute injury pattern, but shows multifocal PVCs that he may or may not be symptomatically from, he is not describing a typical feeling of intermittent PVCs. He recently had eyelid surgery. His d-dimer returned at 0.58, and with age correction, the upper limit of normal becomes 0.82, placing him well within normal limits and negating the necessity for further testing to rule out pulmonary embolus at this time. He states he has never had a stress test. Given some reactive risk, plan is for inpatient observation and further evaluation and risk stratification rule out acute coronary syndrome. ED Disposition - Plan for ED Patient: Disposition: Acute Care Hospital [facility] Chief Complaint: Palpitations Diagnosis: Palpitations, Chest pain, unspecified Referrals: Sarath Wallace MD [Primary Care Provider] -
--- NOTE | 2018-02-14 16:06 | ED.DCSUM_ITS ---
History of Present Illness Chief Complaint: Palpitations Informant: Patient Onset: Today, Hours - 4-6 Context: Gradual Onset - since after 9am radiation therapy sometime Timing: Intermittent Quality: beating hard and can feel it throughout my body; not irregular/ skipping Location: chest Current Severity: Moderate Maximum Severity: Moderate Worsened by: nothing Relieved by: nothing Associated Symptoms: chest pressure, gen weakness Narrative: Currently getting radiation therapy for bladder/prostate cancer, as described by the patient. He is only getting radiation therapy in his suprapubic region, his last treatment was this morning and symptoms started afterwards. He has never had these symptoms before. He has no history of heart problems and has never had a stress test. Denies any lightheadedness, near syncope, shortness of breath. Mostly the discomfort in his chest is nonpleuritic but there is a slight right-sided discomfort that he gets when taking a deep breath. No leg pain or swelling. No history of DVT or PE. Not undergoing systemic chemotherapy. No nausea, vomiting, arm discomfort, neck or jaw discomfort, or back discomfort. No changes with exertion/rest. - Past Medical History (1) Prostate cancer Status: Chronic Past Medical History - Allergies and Home Meds Allergies/Adverse Reactions: Allergies No Known Allergies Allergy (Verified 02/14/18 15:37) Primary Care Physician: Sarath Wallace MD [Primary Care Provider] - Lives: Alone Smoking Status: Never smoker Alcohol: None Drugs: None Review of Systems All systems negative except as indicated General: Reports: Malaise - generalized weakness ENT: Denies: Rhinorrhea, Sore throat Cardiovascular: Reports: Chest pain, Palpitations. Denies: Heart racing Respiratory: Denies: Dyspnea, Cough, Dyspnea on exertion, Orthopnea Gastrointestinal: Denies: Abdominal pain, Nausea, Vomiting, Diarrhea, Constipation, Melena, Hematochezia Musculoskeletal: Denies: Myalgias, Neck pain, Back pain, Swelling, Extremity Pain Skin: Denies: Rash Neurological: Denies: Headache, Parasthesia Endocrine: Denies: Polyuria, Polydipsia Hematologic: Denies: Easy bruising, Easy bleeding Allergy: Denies: Swelling of the mouth, Swelling of the tongue Physical Exam Vital Signs/Narrative: Vital Signs Temp Pulse Resp BP Pulse Ox 02/14/18 15:38 97.9 F 90 20 H 156/104 H 97 Inital Vital Signs reviewed: Yes General: Well nourished, Well developed Head: Normocephalic, Atraumatic Eyes: Perrl, EOMI ENT: Moist mucous membranes, No rhinorrhea Neck: Supple, Nontender, No lymphadenopathy, No JVD Cardiovascular: Regular rate, Regular rhythm - w/ occasional irregularity, No murmurs, Normal S1, Normal S2 Respiratory: No distress, CTA bilaterally, Chest nontender, - - no splinting w/ deep inspiration Abdomen: Soft, Nontender, Nondistended, Normal bowel sounds Back: Nontender, Normal Inspection. Negative for: CVA tenderness Extremities: Nontender - no calf tenderness, No edema Skin: Normal color, No rash Neurological: Alert, Oriented x3, Cranial nerves II-XII grossly intact, Normal Strength, Normal Sensation Psychological: Normal affect Diagnostic/Tx/Re-eval Impressions Chest X-Ray 02/14/18 16:01 IMPRESSION: Negative for consolidation, focal atelectasis, cardiomegaly or pleural effusion. Stigmata of prior granulomatous disease. Atherosclerotic changes of the thoracic aorta. Electronically Signed: Radha Cancino MD at 16:56 EDT , Service support , 02/14/18 16:01 Chest 1 View (Portable) [RAD] Stat Laboratory Results 02/14/18 02/14/18 02/14/18 Range/Units 16:15 16:15 16:15 WBC 4.9 (4.4-11.0) K/mm3 RBC 4.18 L (4.6-6.2) M/mm3 Hgb 13.0 (13.0-16.5) g/dl Hct 39.1 L (40-54) % MCV 93.5 (80-94) fL MCH 31.1 (27.0-32.0) pg MCHC 33.2 (32-36) g/gl RDW 13.3 (11.6-14.6) % RDW Differential 45.7 H (35.1-43.9) fl Plt Count 147 L (150-450) K/mm3 MPV 10.1 (6.2-12.0) fl Immature Gran % (Auto) 0.200 (0.0-0.9) % Neut % (Auto) 68.2 (47-70) % Lymph % (Auto) 18.3 L (19-41) % [place] % (Auto) 11.7 H (0-10) % Eos % (Auto) 1.4 (0-5) % Baso % (Auto) 0.2 (0-1) % Absolute Neuts (auto) 3.3 (2.0-7.7) X10^3/uL Absolute Lymphs (auto) 0.89 (0.83-4.51) X10^3/ul Total Counted Not Reportable D-Dimer Quant (PE/DVT) 0.58 H* (0.27-0.49) FEU/ug/m Sodium 144 (136-145) mmol/L Potassium 4.0 (3.5-5.1) mmol/L Chloride 107 (98-107) mmol/L Carbon Dioxide 29.0 (21.0-32.0) mmol/L Anion Gap 8 (5-15) BUN 22 H (7-18) mg/dL Creatinine 1.23 (0.70-1.30) mg/dL Estim Creat Clear Calc 46.30 ml/min Est GFR (MDRD) Af Amer 72 (>60) mL/min Est GFR (MDRD) Non-Af 60 (>60) mL/min BUN/Creatinine Ratio 17.9 (10-20) RATIO Glucose 91 (74-106) mg/dL Calcium 9.2 (8.5-10.1) mg/dL Troponin I < 0.015 (<0.045) ng/mL - Rhythm Strip Rhythm Strip: Sinus Rhythm Rate: 90 Ectopy: PVC(s) - EKG Initial EKG Interpretation: Sinus Rhythm, No Acute Injury Pattern, - - multifocal PVCs - Medical Decision Making Patient was given aspirin. Prior to getting nitroglycerin, he states that his chest pressure resolves. Troponin is negative, EKG shows no acute injury pattern, but shows multifocal PVCs that he may or may not be symptomatically from, he is not describing a typical feeling of intermittent PVCs. He recently had eyelid surgery. His d-dimer returned at 0.58, and with age correction, the upper limit of normal becomes 0.82, placing him well within normal limits and negating the necessity for further testing to rule out pulmonary embolus at this time. He states he has never had a stress test. Given some reactive risk , plan is for inpatient observation and further evaluation and risk stratification rule out acute coronary syndrome. ED Disposition - Plan for ED Patient: Disposition: Acute Care Hospital [facility] Chief Complaint: Palpitations Diagnosis: Palpitations, Chest pain, unspecified Referrals: Sarath Wallace MD [Primary Care Provider] -
[2018-02-14] MEDS: Aspirin 81 MG TAB.CHEW 324 MG PO (16:16)
[2018-02-14 16:28] LABS: Absolute Lymphocyte Count 0.89 X10^3/ul (0.83-4.51); Absolute Neutrophil Count 3.3 X10^3/uL (2.0-7.7); Basophil# 0.01 X10^3/uL; Basophil% 0.2 % (0-1); Eosinophil# 0.07 X10^3/uL; Eosinophils% 1.4 % (0-5); Hematocrit 39.1 % (40-54); Lymphocyte # 0.89 X10^3/ul (4.0); Lymphocyte % 18.3 % (19-41); Mean Corp Hgb Conc 33.2 g/gl (32-36); Mean Corpuscular Hgb 31.1 pg (27.0-32.0); Mean Corpuscular Volume 93.5 fL (80-94); Mean Platelet Vol. 10.1 fl (6.2-12.0); Monocyte# 0.57 X10^3/uL; Monocyte% 11.7 % (0-10); Neutrophil # 3.31 X10^3/uL (2.7-7.7); Neutrophil % 68.2 % (47-70); Platelet Count 147 K/mm3 (150-450); RBC Distribution Width CV 13.3 % (11.6-14.6); RBC Distribution Width SD 45.7 fl (35.1-43.9); Red Blood Count 4.18 M/mm3 (4.6-6.2); White Blood Count 4.9 K/mm3 (4.4-11.0)
[2018-02-14 16:29] LABS: POSITIVE COUNT NO; POSITIVE DIFFERENTIAL NO; POSITIVE MORPHOLOGY NO
[2018-02-14 16:44] LABS: Anion Gap 8 (5-15); BUN 22 mg/dL (7-18); BUN/Creat Ratio 17.9 RATIO (10-20); Calcium,Total 9.2 mg/dL (8.5-10.1); Chloride 107 mmol/L (98-107); Creatinine, Serum 1.23 mg/dL (0.70-1.30); EST Glomerular Filtration Rate 60 mL/min (>60); Est Glom Filt Rate - Afr Amer 72 mL/min (>60); Glucose 91 mg/dL (74-106); Sodium Level 144 mmol/L (136-145)
[2018-02-14 16:45] LABS: D-Dimer Quantitative (DVT/PE) 0.58 FEU/ug/m (0.27-0.49)
--- NOTE | 2018-02-14 16:46 | ED.RN ---
DDIMER 0.58 CALL[address] FROM THE LAB. DR WALDRON AWARE
--- NOTE | 2018-02-14 18:13 | PCM.HP.STD ---
Problem List (1) Chest pain, unspecified Status: Acute (2) Palpitations Status: Acute History of Present Illness Date of Admission: 02/14/18 Chief Complaint: chest pain The patient is a 82 year old M who is undergoing creation treatment for prostate cancer where he started feeling some chest pressure and fluttering across his chest. Persisted until he came to the emergency room and Atrovent aspirin and nitroglycerin. It is since resolved. Patient has never had anything like this before. Patient had cardiac workup in the emergency room which was unremarkable except for noting some PVCs on EKG and telemetry. Patient being admitted under observation status for further chest pain evaluation. Patient states that he did feel tired with this. [] Past Medical History Past Medical History (Chronic Problems): Chronic Problems (Last Updated 02/14/18 @ 18:15 by John Schwarz DO) Prostate cancer (Chronic) Medical History: Medical History (Last Updated 02/14/18 @ 18:15 by John Schwarz DO) Prostate cancer C61 HTN (hypertension) I10 Allergies No Known Allergies Allergy (Verified 02/14/18 15:37) Home Medications: Ambulatory Orders Medication Instructions Recorded Dutasteride [Avodart] 0.5 mg PO QHS 10/27/17 Amlodipine [Norvasc] 1.25 mg PO QHS 02/14/18 Doxazosin Mesylate [Cardura] 2 mg PO DAILY 02/14/18 Lives: Alone Smoking Status: Never smoker Alcohol: None Drugs: None - *Family History Maternal History Items: - - No heart disease Review of Systems Constitutional: Reports: Weakness. Denies: Chills, Fever, Weight Change Eyes: Denies: Blurred vision, Double vision HEENT: Denies: Head Aches, Sinus Congestion, Sinus Drainage Cardiovascular: Reports: Chest Pain, Palpitations. Denies: Edema Respiratory: Denies: Cough, Shortness of breath at rest, Sputum production Gastrointestinal: Denies: Abdominal Pain, Nausea, Vomiting Genitourinary: Reports: - - Did have urinary retention prior to his prostate cancer being diagnosed but that has subsequently resolved.. Denies: Dysuria Musculoskeletal: Denies: Joint Pain, Joint Tenderness Skin: Denies: Rash, Wounds Neurological: Denies: Numbness, Tingling, Focal weakness Psychiatric: Denies: Anxiety, Depression Hematologic/ Lymphatic: Denies: Easy Bruising, Easy Bleeding, Hx of blood clot Comment: All review of systems are negative except as mentioned in the history of present illness and the other review of systems. VTE Information - Inpt Only VTE Present on Admission: No VTE Mechan Device Prophylaxis: None VTE Pharm Prophylaxis ordered?: Yes Patient Problems: Active and Suspected Problems (Last Updated 02/14/18 @ 18:15 by John Schwarz DO) Palpitations (Acute) Chest pain, unspecified (Acute) - Physical Exam General: Alert, No apparent distress HEENT: Atraumatic, Normocephalic Oral: Moist Mucosa, No Gingival or Mucosal Lesions/ Ulcerations Neck: No Nodes, Thyroid Normal Size and Texture Lungs: Clear to auscultation, Normal air movement, No rhonchi, No wheeze Cardiovascular: Regular rate, Regular Rhythm, Normal S1, Normal S2, No murmurs Abdomen: Bowel Sounds Present, Soft, Non Tender, Non-Distended Extremities: No edema, No Calf Tenderness Skin: No rashes, No breakdown Musculoskeletal: No Tenderness to Palpation of Joints or Extremities, No Muscle Wasting Psych/Mental Status: Normal Affect, Appropriate Vital Signs Temp Pulse Resp BP Pulse Ox 36.6 C 73 16 136/81 H 99 02/14/18 15:38 02/14/18 17:32 02/14/18 17:32 02/14/18 17:32 02/14/18 16:19 Oxygen Delivery Method Room Air Weight: 74.8 kg Body Mass Index (BMI) 24.3 Laboratory Tests Past 24 Hrs 02/14/18 02/14/18 02/14/18 16:15 16:15 16:15 WBC 4.9 RBC 4.18 L Hgb 13.0 Hct 39.1 L MCV 93.5 MCH 31.1 MCHC 33.2 RDW 13.3 RDW Differential 45.7 H Plt Count 147 L MPV 10.1 Immature Gran % (Auto) 0.200 Neut % (Auto) 68.2 Lymph % (Auto) 18.3 L [place] % (Auto) 11.7 H Eos % (Auto) 1.4 Baso % (Auto) 0.2 Absolute Neuts (auto) 3.3 Absolute Lymphs (auto) 0.89 Total Counted Not Reportable D-Dimer Quant (PE/DVT) 0.58 H* Sodium 144 Potassium 4.0 Chloride 107 Carbon Dioxide 29.0 Anion Gap 8 BUN 22 H Creatinine 1.23 Estim Creat Clear Calc 46.30 Est GFR (MDRD) Af Amer 72 Est GFR (MDRD) Non-Af 60 BUN/Creatinine Ratio 17.9 Glucose 91 Calcium 9.2 Troponin I < 0.015 EKG reviewed and showed normal sinus with no acute process. PVCs were noted. Clinical Impression(s) from Imaging Studies Chest X-Ray 02/14/18 16:01 IMPRESSION: Negative for consolidation, focal atelectasis, cardiomegaly or pleural effusion. Stigmata of prior granulomatous disease. Atherosclerotic changes of the thoracic aorta. Electronically Signed: Radha Cancino MD at 16:56 EDT , Service support , Assessment/Plan All Active Problems (Last Updated 02/14/18 @ 18:15 by John Schwarz DO) Palpitations (Acute) Chest pain, unspecified (Acute) 1. Chest pain Heart score of 5 and a MASSIEL score of 2 Patient be admitted and undergo a nuclear stress test on the In the meantime, we will cycle troponins and check a lipid panel in the morning 2. Palpitations Patient noticing fluttering in his chest Patient with PVCs on the monitor No evidence of any atrial fibrillation or ventricular tachycardia at this point in time 3. Prostate cancer Follow-up with radiation oncology to continue with his radiation treatments as previously prescribed 4. DVT prophylaxis with Lovenox Code Visit OBSV E&M: 51237 Initial observation care L2
--- NOTE | 2018-02-14 18:19 | HP.PCM_ITS ---
Problem List (1) Chest pain, unspecified Status: Acute (2) Palpitations Status: Acute History of Present Illness Date of Admission: 02/14/18 Chief Complaint: chest pain The patient is a 82 year old M who is undergoing creation treatment for prostate cancer where he started feeling some chest pressure and fluttering across his chest. Persisted until he came to the emergency room and Atrovent aspirin and nitroglycerin. It is since resolved. Patient has never had anything like this before. Patient had cardiac workup in the emergency room which was unremarkable except for noting some PVCs on EKG and telemetry. Patient being admitted under observation status for further chest pain evaluation. Patient states that he did feel tired with this. [] Past Medical History Past Medical History (Chronic Problems): Chronic Problems (Last Updated 02/14/18 @ 18:15 by John Schawrz DO) Prostate cancer (Chronic) Medical History: Medical History (Last Updated 02/14/18 @ 18:15 by John Schwarz DO) Prostate cancer C61 HTN (hypertension) I10 Allergies No Known Allergies Allergy (Verified 02/14/18 15:37) Home Medications: Ambulatory Orders Medication Instructions Recorded Dutasteride [Avodart] 0.5 mg PO QHS 10/27/17 Amlodipine [Norvasc] 1.25 mg PO QHS 02/14/18 Doxazosin Mesylate [Cardura] 2 mg PO DAILY 02/14/18 Lives: Alone Smoking Status: Never smoker Alcohol: None Drugs: None - *Family History Maternal History Items: - - No heart disease Review of Systems Constitutional: Reports: Weakness. Denies: Chills, Fever, Weight Change Eyes: Denies: Blurred vision, Double vision HEENT: Denies: Head Aches, Sinus Congestion, Sinus Drainage Cardiovascular: Reports: Chest Pain, Palpitations. Denies: Edema Respiratory: Denies: Cough, Shortness of breath at rest, Sputum production Gastrointestinal: Denies: Abdominal Pain, Nausea, Vomiting Genitourinary: Reports: - - Did have urinary retention prior to his prostate cancer being diagnosed but that has subsequently resolved.. Denies: Dysuria Musculoskeletal: Denies: Joint Pain, Joint Tenderness Skin: Denies: Rash, Wounds Neurological: Denies: Numbness, Tingling, Focal weakness Psychiatric: Denies: Anxiety, Depression Hematologic/ Lymphatic: Denies: Easy Bruising, Easy Bleeding, Hx of blood clot Comment: All review of systems are negative except as mentioned in the history of present illness and the other review of systems. VTE Information - Inpt Only VTE Present on Admission: No VTE Mechan Device Prophylaxis: None VTE Pharm Prophylaxis ordered?: Yes Patient Problems: Active and Suspected Problems (Last Updated 02/14/18 @ 18:15 by John Schwarz DO ) Palpitations (Acute) Chest pain, unspecified (Acute) - Physical Exam General: Alert, No apparent distress HEENT: Atraumatic, Normocephalic Oral: Moist Mucosa, No Gingival or Mucosal Lesions/ Ulcerations Neck: No Nodes, Thyroid Normal Size and Texture Lungs: Clear to auscultation, Normal air movement, No rhonchi, No wheeze Cardiovascular: Regular rate, Regular Rhythm, Normal S1, Normal S2, No murmurs Abdomen: Bowel Sounds Present, Soft, Non Tender, Non-Distended Extremities: No edema, No Calf Tenderness Skin: No rashes, No breakdown Musculoskeletal: No Tenderness to Palpation of Joints or Extremities, No Muscle Wasting Psych/Mental Status: Normal Affect, Appropriate Vital Signs Temp Pulse Resp BP Pulse Ox 36.6 C 73 16 136/81 H 99 02/14/18 15:38 02/14/18 17:32 02/14/18 17:32 02/14/18 17:32 02/14/18 16:19 Oxygen Delivery Method Room Air Weight: 74.8 kg Body Mass Index (BMI) 24.3 Laboratory Tests Past 24 Hrs 02/14/18 02/14/18 02/14/18 16:15 16:15 16:15 WBC 4.9 RBC 4.18 L Hgb 13.0 Hct 39.1 L MCV 93.5 MCH 31.1 MCHC 33.2 RDW 13.3 RDW Differential 45.7 H Plt Count 147 L MPV 10.1 Immature Gran % (Auto) 0.200 Neut % (Auto) 68.2 Lymph % (Auto) 18.3 L Hyde % (Auto) 11.7 H Eos % (Auto) 1.4 Baso % (Auto) 0.2 Absolute Neuts (auto) 3.3 Absolute Lymphs (auto) 0.89 Total Counted Not Reportable D-Dimer Quant (PE/DVT) 0.58 H* Sodium 144 Potassium 4.0 Chloride 107 Carbon Dioxide 29.0 Anion Gap 8 BUN 22 H Creatinine 1.23 Estim Creat Clear Calc 46.30 Est GFR (MDRD) Af Amer 72 Est GFR (MDRD) Non-Af 60 BUN/Creatinine Ratio 17.9 Glucose 91 Calcium 9.2 Troponin I < 0.015 EKG reviewed and showed normal sinus with no acute process. PVCs were noted. Clinical Impression(s) from Imaging Studies Chest X-Ray 02/14/18 16:01 IMPRESSION: Negative for consolidation, focal atelectasis, cardiomegaly or pleural effusion. Stigmata of prior granulomatous disease. Atherosclerotic changes of the thoracic aorta. Electronically Signed: Radha Cancino MD at 16:56 EDT , Service support , Assessment/Plan All Active Problems (Last Updated 02/14/18 @ 18:15 by John Schwarz DO) Palpitations (Acute) Chest pain, unspecified (Acute) 1. Chest pain * Heart score of 5 and a MASSIEL score of 2 * Patient be admitted and undergo a nuclear stress test on the * In the meantime, we will cycle troponins and check a lipid panel in the morning 2. Palpitations * Patient noticing fluttering in his chest * Patient with PVCs on the monitor * No evidence of any atrial fibrillation or ventricular tachycardia at this point in time 3. Prostate cancer * Follow-up with radiation oncology to continue with his radiation treatments as previously prescribed 4. DVT prophylaxis with Lovenox Code Visit OBSV E&M: 76701 Initial observation care L2
[2018-02-14] MEDS: amLODIPine 2.5 MG Tablet 1.25 MG PO (21:56)
[2018-02-14] MEDS: Finasteride 5 MG Tablet PO (21:57)
[2018-02-15] VITALS (8 sets, daily range): BP systolic 122–140; BP diastolic 68–74; PULSE 65–92; RESP 16–18; TEMP 36.6–36.9; O2SAT 95–98
[2018-02-15 05:05] LABS: Hemoglobin 12.6 g/dl (13.0-16.5); Mean Corp Hgb Conc 33.2 g/gl (32-36); Mean Corpuscular Hgb 31.2 pg (27.0-32.0); Mean Corpuscular Volume 94.1 fL (80-94); Mean Platelet Vol. 10.3 fl (6.2-12.0); Platelet Count 149 K/mm3 (150-450); RBC Distribution Width CV 13.2 % (11.6-14.6); RBC Distribution Width SD 45.3 fl (35.1-43.9); Red Blood Count 4.04 M/mm3 (4.6-6.2)
[2018-02-15 05:06] LABS: Scan Indicated on CBC? Y/N NO
[2018-02-15 05:09] LABS: Prothrombin Time (Protime)PT. 13.5 SECONDS (11.7-14.9)
[2018-02-15 05:10] LABS: Partial Thromboplast Time 28.1 Seconds (24.1-36.2)
[2018-02-15 05:18] LABS: Anion Gap 10 (5-15); BUN 18 mg/dL (7-18); BUN/Creat Ratio 17.8 RATIO (10-20); Calcium,Total 8.7 mg/dL (8.5-10.1); Chloride 108 mmol/L (98-107); Cholesterol 203 mg/dL (200); Creatinine, Serum 1.01 mg/dL (0.70-1.30); EST Glomerular Filtration Rate 75 mL/min (>60); Est Glom Filt Rate - Afr Amer 91 mL/min (>60); Estimated Creatinine Clearance 54.55 ml/min; Glucose 94 mg/dL (74-106); High Density Lipoprotein 52 mg/dL; Potassium 3.9 mmol/L (3.5-5.1); Sodium Level 143 mmol/L (136-145); Triglycerides 146 mg/dL; Very Low Density Lipoprotein 29 mg/dL (5-40)
[2018-02-15] MEDS: Aspirin E.C. 81 MG Tablet PO (05:51)
[2018-02-15] MEDS: Doxazosin 1 MG Tablet 2 MG PO (05:51)
--- NOTE | 2018-02-15 05:55 | NM_ITS ---
CLINICAL: 82-year-old hypertensive male with reported history of chest discomfort. REST-REGADENOSON 99m Tc SESTAMIBI MYOCARDIAL PERFUSION SPECT COMPARISON: None available FINDINGS: Following the intravenous administration of 11.8 mCi of 99m Tc sestamibi, the resting attenuation corrected myocardial perfusion acquisitions demonstrate uniform radiopharmaceutical concentration throughout all left ventricular segments. The patient was administered intravenous regadenoson (0.4 mgm). Following the intravenous administration of 33.0 mCi of 99m Tc sestamibi, the post regadenoson attenuation corrected images reveal likewise normal perfusion throughout all left ventricular myocardial segments. The post stress resting left ventricular ejection fraction is calculated to be > 70 % by gated SPECT technique. Wall motion and end systolic thickening are considered normal. NM/Nuclear Stress Test - Chemical IMPRESSION: 1. NORMAL REST-REGADENOSON STRESS 99m Tc SESTAMIBI MYOCARDIAL PERFUSION SPECT. A. No evidence of pharmacologically induced left ventricular ischemia. B. Preservation of resting left ventricular systolic function. (Tatiana et al, J Nucl Med 37: 105P, 1995). Electronically Signed: Kem Peraza DO at 14:22 EDT Tel , Service support ,
--- NOTE | 2018-02-15 12:00 | CASEMGMT ---
MARLYS FERNANDEZ NOTE: Intro role to RN REBECCA. Pt sitting up in bed, awake/alert/oriented. Pt states lives @ home alone and is independent with all ADL's. 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 Pt states he has no needs or concerns at this time. Minda BSN MARLYS FERNANDEZ
--- NOTE | 2018-02-15 14:34 | DCINST_ITS ---
- Discharge Diagnoses Current Active Problems: Current Active and Chronic Problems (Last Updated 02/14/18 @ 18:15 by John Schwarz DO) Palpitations (Acute) Chest pain, unspecified (Acute) You will use the following diet at home:: Cardiac Your food should be the consistency of: Regular Your liquids should be the consistency of: Regular/Thin Discharge Activity: Return to Normal Activity Allergies/Adverse Reactions: Allergies No Known Allergies Allergy (Verified 02/14/18 15:37) Medications to take at Discharge Dutasteride [Avodart] 0.5 mg PO QHS 10/27/17 Amlodipine [Norvasc] 1.25 mg PO QHS 02/14/18 Doxazosin Mesylate [Cardura] 2 mg PO DAILY 02/14/18 Primary Care Physician: Sarath Wallace MD [Primary Care Provider] - Please follow up with your Primary Care Physician in: 1-2 weeks Test Results: Test results from this visit will be discussed in further detail at your follow- up appointment, if applicable. Please Follow Up With: Cordell Crook MD When: As directed Proposed Discharge Date: 02/15/18
--- NOTE | 2018-02-15 14:35 | PCM.DC.SUM ---
<Sacha Thomas - Last Filed: 02/15/18 14:35> Discharge Date and Diagnosis - Problem List Patient Problems: Active and Suspected Problems (Last Updated 02/14/18 @ 18:15 by John Schwarz DO) Palpitations (Acute) Chest pain, unspecified (Acute) Date of Admission: 02/14/18 Date of Discharge: 02/15/18 - Primary Discharge Diagnosis Active and Suspected Problems (Last Updated 02/14/18 @ 18:15 by John Schwarz DO) Chest pain - musculoskeletal Prostate cancer Bladder cancer HTN - Secondary Discharge Diagnosis Chronic Problems (Last Updated 02/14/18 @ 18:15 by John Schwarz DO) Prostate cancer (Chronic) Hospital Course and Treatment Imaging Results: RAD/Chest 1 View (Portable) IMPRESSION: Negative for consolidation, focal atelectasis, cardiomegaly or pleural effusion. Stigmata of prior granulomatous disease. Atherosclerotic changes of the thoracic aorta. NM/Nuclear Stress Test - Chemical IMPRESSION: 1. NORMAL REST-REGADENOSON STRESS 99m Tc SESTAMIBI MYOCARDIAL PERFUSION SPECT. A. No evidence of pharmacologically induced left ventricular ischemia. B. Preservation of resting left ventricular systolic function. (Tatiana et al, J Nucl Med 37: 105P, 1995). Operations: None Procedures: Stress test Summary of Care Provided: Physical exam on day of discharge: General: Resting comfortably NAD Psych: A/Ox3 normal affect HEENT: PEARRLA AT NC Neck: Supple NT CV: RRR no m/t/r/g/h Resp: CTA Abd: [id number] Soft NT no guarding or rigidity Ext: DP2+= no edema Skin: W/D normal turgor Lymph/Heme: No active bleeding or adenopathy Neuro: CN2-12 intact Hospital course: The patient is a 82 year old M with a history of prostate and bladder cancer for which she is undergoing radiation therapy, history of hypertension, who presented to the emergency room with midsternal chest pressure and a fluttering sensation, and feeling of fatigue that came on suddenly following radiation treatment. He follows Dr. Garzon for radiation oncology and Dr. Yusuf for uruology. He had a an EKG showing PVCs, negative chest x-ray, negative troponin. He was admitted to the PCU for cardiac workup. We repeated his troponins which were negative, maintained him on telemetry, and obtained a stress test the following morning. His workup was negative. It was felt that his chest pain was likely musculoskeletal and that his palpitations may have been from PVCs. He was discharged home in stable condition. He will need follow-up with his PCP and with his radiation oncology to continue radiation therapy. This patient was seen by Sacha Thomas PA-C under the supervision of Doctor Schwarz. [] Discharge Diet: Low fat/ Low Cholesterol, 2000 mg Sodium Diet Discharge Activity: Return to Normal Activity Home Medications: Medications to take at Discharge Dutasteride [Avodart] 0.5 mg PO QHS 10/27/17 Amlodipine [Norvasc] 1.25 mg PO QHS 02/14/18 Doxazosin Mesylate [Cardura] 2 mg PO DAILY 02/14/18 Primary Care Physician: Sarath Wallace MD [Primary Care Provider] - Please follow up with your Primary Care Physician in: 1-2 weeks Please Follow Up With: Cordell Crook MD When: As directed Disposition: Home Minutes spent on discharge:: 35 Patient Condition:: Stable Medical Necessity - Tobacco Use Smoking Status: Never smoker Meaningful Use Info Meaningful Use Diagnoses (Choose all that apply): None applicable <John Schwarz - Last Filed: 02/15/18 14:51> Discharge Date and Diagnosis - Primary Discharge Diagnosis Active and Suspected Problems (Last Updated 02/14/18 @ 18:15 by John Schwarz DO) Palpitations (Acute) Chest pain, unspecified (Acute) - Secondary Discharge Diagnosis Chronic Problems (Last Updated 02/14/18 @ 18:15 by John Schwarz DO) Prostate cancer (Chronic) Hospital Course and Treatment Operations: None Procedures: Stress test Summary of Care Provided: Patient seen and examined independently. Data reviewed. I agree with the above note by the physician mri assistant. The patient is a 82 year old M developed chest pressure and fluttering in his chest after radiation treatment. Patient was brought in and evaluated for cardiac associated chest pain. Stress test was performed today and was negative. Patient will be discharged home. [] Discharge Diet: Low fat/ Low Cholesterol, 2000 mg Sodium Diet Discharge Activity: Return to Normal Activity Disposition: Home Minutes spent on discharge:: 35 Patient Condition:: Stable Meaningful Use Info Meaningful Use Diagnoses (Choose all that apply): None applicable Code Visit OBSV E&M: 81529 Observation care discharge
--- NOTE | 2018-02-15 14:39 | DS.PCM_ITS ---
<Sacha Thomas - Last Filed: 02/15/18 14:35> Discharge Date and Diagnosis - Problem List Patient Problems: Active and Suspected Problems (Last Updated 02/14/18 @ 18:15 by John Schwarz DO ) Palpitations (Acute) Chest pain, unspecified (Acute) Date of Admission: 02/14/18 Date of Discharge: 02/15/18 - Primary Discharge Diagnosis Active and Suspected Problems (Last Updated 02/14/18 @ 18:15 by John Schwarz DO ) Chest pain - musculoskeletal Prostate cancer Bladder cancer HTN - Secondary Discharge Diagnosis Chronic Problems (Last Updated 02/14/18 @ 18:15 by John Schwarz DO) Prostate cancer (Chronic) Hospital Course and Treatment Imaging Results: RAD/Chest 1 View (Portable) IMPRESSION: Negative for consolidation, focal atelectasis, cardiomegaly or pleural effusion. Stigmata of prior granulomatous disease. Atherosclerotic changes of the thoracic aorta. NM/Nuclear Stress Test - Chemical IMPRESSION: 1. NORMAL REST-REGADENOSON STRESS 99m Tc SESTAMIBI MYOCARDIAL PERFUSION SPECT. A. No evidence of pharmacologically induced left ventricular ischemia. B. Preservation of resting left ventricular systolic function. (Tatiana et al, J Nucl Med 37: 105P, 1995). Operations: None Procedures: Stress test Summary of Care Provided: Physical exam on day of discharge: General: Resting comfortably NAD Psych: A/Ox3 normal affect HEENT: PEARRLA AT NC Neck: Supple NT CV: RRR no m/t/r/g/h Resp: CTA Abd: [id number] Soft NT no guarding or rigidity Ext: DP2+= no edema Skin: W/D normal turgor Lymph/Heme: No active bleeding or adenopathy Neuro: CN2-12 intact Hospital course: The patient is a 82 year old M with a history of prostate and bladder cancer for which she is undergoing radiation therapy, history of hypertension, who presented to the emergency room with midsternal chest pressure and a fluttering sensation, and feeling of fatigue that came on suddenly following radiation treatment. He follows Dr. Garzon for radiation oncology and Dr. Yusuf for uruology. He had a an EKG showing PVCs, negative chest x-ray, negative troponin. He was admitted to the PCU for cardiac workup. We repeated his troponins which were negative, maintained him on telemetry, and obtained a stress test the following morning. His workup was negative. It was felt that his chest pain was likely musculoskeletal and that his palpitations may have been from PVCs. He was discharged home in stable condition. He will need follow-up with his PCP and with his radiation oncology to continue radiation therapy. This patient was seen by Sacha Thomas PA-C under the supervision of Doctor Schwarz. [] Discharge Diet: Low fat/ Low Cholesterol, 2000 mg Sodium Diet Discharge Activity: Return to Normal Activity Home Medications: Medications to take at Discharge Dutasteride [Avodart] 0.5 mg PO QHS 10/27/17 Amlodipine [Norvasc] 1.25 mg PO QHS 02/14/18 Doxazosin Mesylate [Cardura] 2 mg PO DAILY 02/14/18 Primary Care Physician: Sarath Wallace MD [Primary Care Provider] - Please follow up with your Primary Care Physician in: 1-2 weeks Please Follow Up With: Cordell Crook MD When: As directed Disposition: Home Minutes spent on discharge:: 35 Patient Condition:: Stable Medical Necessity - Tobacco Use Smoking Status: Never smoker Meaningful Use Info Meaningful Use Diagnoses (Choose all that apply): None applicable <John Schwarz - Last Filed: 02/15/18 14:51> Discharge Date and Diagnosis - Primary Discharge Diagnosis Active and Suspected Problems (Last Updated 02/14/18 @ 18:15 by John Schwarz DO ) Palpitations (Acute) Chest pain, unspecified (Acute) - Secondary Discharge Diagnosis Chronic Problems (Last Updated 02/14/18 @ 18:15 by John Schwarz DO) Prostate cancer (Chronic) Hospital Course and Treatment Operations: None Procedures: Stress test Summary of Care Provided: Patient seen and examined independently. Data reviewed. I agree with the above note by the physician training and development assistant. The patient is a 82 year old M developed chest pressure and fluttering in his chest after radiation treatment. Patient was brought in and evaluated for cardiac associated chest pain. Stress test was performed today and was negative. Patient will be discharged home. [] Discharge Diet: Low fat/ Low Cholesterol, 2000 mg Sodium Diet Discharge Activity: Return to Normal Activity Disposition: Home Minutes spent on discharge:: 35 Patient Condition:: Stable Meaningful Use Info Meaningful Use Diagnoses (Choose all that apply): None applicable Code Visit OBSV E&M: 29763 Observation care discharge
--- NOTE | 2018-02-17 08:38 | STRESSREP ---
Stress Test Report Pharmacologic myocardial perfusion stress test. 82-year-old man with a history of chest pain. Stress protocol: Resting EKG demonstrates normal sinus rhythm with a rate of 64 bpm normal intervals are noted resting blood pressure 732/80 mmHg. 0.4 mg of regadenoson was infused per usual protocol the maximum heart rate attained was 96 bpm which was 69% of maximum predicted heart rate the maximum workload was 1 metabolic equivalent. Patient maintained sinus rhythm throughout the recording. At rest there were no ST or T-wave changes noted suggest abnormal flow reserve and at peak infusion no ST or T-wave changes were noted suggest abnormal flow reserve. Myocardial perfusion protocol. Patient underwent technetium 99m sestamibi injection. This would be dictated under separate cover by the radiology department. Conclusion: Pharmacologic myocardial perfusion stress test with no EKG changes of abnormal flow reserve. Nuclear images dictated separately.
== END 2018-02-15 14:34 | disposition home or self-care (01) ==
LOC: ED 17:21 → PCU 18:51
PROVIDERS: Hospitalist; Emergency Provider Emergency Medicine; Family Provider Internal Medicine; PCP Internal Medicine
DX: R07.89 Other chest pain (principal); R00.2 Palpitations; C61 Malignant neoplasm of prostate; Z79.899 Other long term (current) drug therapy; I49.3 Ventricular premature depolarization; I10 Essential (primary) hypertension; C67.9 Malignant neoplasm of bladder, unspecified; Z92.3 Personal history of irradiation
CPT/HCPCS: 36415; 71045; 78452; 80048; 80061; 84484; 85025; 85027; 85379; 85610; 85730; 93005; 93017; 99218; 99283; A9500; A4216; G0378; J2785

== ENCOUNTER → 2018-03-13 10:05 | Outpatient (CLI) | payer MEDICARE, OTHER, SELFPAY ==
[2018-03-13 11:08] LABS: Absolute Lymphocyte Count 0.62 X10^3/ul (0.83-4.51); Absolute Neutrophil Count 2.8 X10^3/uL (2.0-7.7); Basophil# 0.01 X10^3/uL; Basophil% 0.2 % (0-1); Eosinophil# 0.08 X10^3/uL; Hematocrit 38.8 % (40-54); Hemoglobin 12.8 g/dl (13.0-16.5); Lymphocyte # 0.62 X10^3/ul (4.0); Lymphocyte % 15.2 % (19-41); Mean Corpuscular Hgb 31.1 pg (27.0-32.0); Mean Corpuscular Volume 94.2 fL (80-94); Mean Platelet Vol. 10.1 fl (6.2-12.0); Monocyte# 0.53 X10^3/uL; Neutrophil # 2.82 X10^3/uL (2.7-7.7); Neutrophil % 69.4 % (47-70); Platelet Count 190 K/mm3 (150-450); RBC Distribution Width CV 13.5 % (11.6-14.6); RBC Distribution Width SD 46.5 fl (35.1-43.9); Red Blood Count 4.12 M/mm3 (4.6-6.2); White Blood Count 4.1 K/mm3 (4.4-11.0)
[2018-03-13 11:14] LABS: POSITIVE COUNT NO; POSITIVE DIFFERENTIAL NO; POSITIVE MORPHOLOGY NO
== END ==
PROVIDERS: Family Provider Internal Medicine; PCP Internal Medicine; Visit Provider Radiology Radiation Oncology
DX: C61 Malignant neoplasm of prostate (principal)
CPT/HCPCS: 36415; 85025

== ENCOUNTER → 2018-07-10 14:07 | Outpatient (CLI) | payer MEDICARE, OTHER, SELFPAY ==
[2018-07-10 15:04] LABS: PSA,Total- Diagnostic 0.39 ng/mL (0.0-4.0)
== END ==
PROVIDERS: Family Provider Internal Medicine; PCP Internal Medicine; Visit Provider Urology
DX: C61 Malignant neoplasm of prostate (principal)
CPT/HCPCS: 36415; 84153

== ENCOUNTER → 2018-12-25 | Outpatient (CLI) | payer MEDICARE, OTHER, SELFPAY ==
[2018-02-14 19:20] VITALS: BMI 24.8
[2018-12-25 17:18] LABS: PSA,Total- Diagnostic 2.77 ng/mL (0.0-4.0)
== END | disposition home or self-care (01) ==
LOC: LAB 14:47
PROVIDERS: Family Provider Internal Medicine; PCP Internal Medicine; Referring Provider Urology; Visit Provider Urology
DX: C61 Malignant neoplasm of prostate (principal)
CPT/HCPCS: 36415; 84153

== ENCOUNTER 2019-01-05 15:58 | Inpatient (IN) | payer MEDICARE, OTHER, SELFPAY ==
[2019-01-05 15:59] VITALS: BP 133/82; PULSE 69; RESP 15; TEMP 36.8; O2SAT 99; BMI 24.3
--- NOTE | 2019-01-05 16:12 | RAD_ITS ---
STUDY: X-RAY CHEST REASON FOR EXAM: Male, 83 years old. Dizziness. TECHNIQUE: Single frontal view of the chest. COMPARISON: February 14, 2018 FINDINGS: Stable hyperexpansion and granulomatous calcifications. There is no demonstrated pleural abnormality. Stable mild cardiomegaly. Calcified mediastinal lymph nodes unchanged. Normal visualized pulmonary arteries. Stable aortic tortuosity with calcification. Normal visualized thoracic spine. Normal visualized ribs, clavicles, and shoulders. There is no demonstrated abnormality of the visualized soft tissue structures of the upper abdomen. RAD/Chest 1 View (Portable) IMPRESSION: Stable mild cardiomegaly with hyperexpansion. No acute finding. Electronically Signed: Jean Shannon MD at 16:33 EDT , Service support ,
--- NOTE | 2019-01-05 16:12 | EKG12_ITS ---
Test Reason : DIZZINESS Blood Pressure : / mmHG Vent. Rate : 081 BPM Atrial Rate : 081 BPM P-R Int : 140 ms QRS Dur : 078 ms QT Int : 366 ms P-R-T Axes : 063 037 047 degrees QTc Int : 425 ms Sinus rhythm with Premature atrial complexes Otherwise normal ECG Confirmed by MADY COLEY, IZABELLA ([id number]), primer expeditor and drier ARTEMIO MARES ([id number]) on 01/07/2019 12:21:26 PM Referred By: MUNIR Confirmed By:IZABELLA EARL MD
--- NOTE | 2019-01-05 16:13 | CT_ITS ---
STUDY: CT ABDOMEN AND PELVIS WITHOUT CONTRAST REASON FOR EXAM: Male, 83 years old. Abdominal pain and dizziness RADIATION DOSAGE (If Supplied By Facility): CTDIvol = ( 8.34 ) mGy, DLP = ( 375.08 ) mGycm TECHNIQUE: Transaxial images were obtained from the dome of the diaphragm to the symphysis pubis without oral contrast, and without intravenous contrast. Sagittal and coronal images were reconstructed. Individualized dose optimization techniques were used for this CT. COMPARISON: 11/12/2017 FINDINGS: There are chronic interstitial fibrotic changes of the lung bases. The visualized portions of the heart are within normal limits. Normal liver. The gallbladder is contracted. There are multiple benign calcified granulomata of the spleen. Normal pancreas. Normal bilateral adrenal glands. There is a stable mildly prominent right UPJ but no hydroureter or hydronephrosis noted. There is now moderate to severe left hydronephrosis and hydroureter with blunting of the calyces within the kidney and perinephric and periureteral inflammatory stranding. This is new since the previous study. The left ureter is dilated along its entire course. There is no obstructing stone identified. Findings could be due to nonradiopaque stone, recent passage of a stone, or underlying mass lesion cannot be identified without contrast. There is a small hiatal hernia. Normal small intestine. Retained stool noted in the colon. There are a few scattered sigmoid diverticula The appendix is visualized and appears normal. Appendix best seen on coronal recon image 56. There is diffuse atherosclerotic calcification of the abdominal aorta, without a demonstrated aneurysm. Normal inferior vena cava. Normal retroperitoneum. Normal urinary bladder. There is a right inguinal hernia containing a small bowel loop without evidence of obstruction or inflammation. There are diffuse degenerative changes of the visualized lumbar spine, and pelvis. CT/Abdomen/Pelvis without Cont IMPRESSION: New since the previous study is extensive left-sided hydronephrosis and hydroureter with perinephric and periureteral inflammatory stranding. No obstructing stone is noted. Findings could be due to recent passage of a stone, nonradiopaque stone or underlying mass lesion. Urologic consultation recommended Stable mild distention of the right UPJ Scattered colonic diverticulosis Right inguinal hernia containing a small bowel loop, no acute inflammation or obstruction noted. Electronically Signed: Elias Cervantes MD at 17:44 EDT , Service support ,
--- NOTE | 2019-01-05 16:26 | ED.DCSUM_ITS ---
- ER Visit Summary Date of Service: 01/05/19 Chief Complaint: [Dizziness and shortness of breath] History of Present Illness: The patient is a 83 M [does the emergency department with complaint of dizziness and shortness of breath started around 1 PM. Patient states that he was recently diagnosed with a urinary tract infection 4 days ago and subsequently was started on ciprofloxacin. Today patient was feeling well so he decided to mow his lawn and after about half an hour on the riding mower patient began feeling lightheaded and short of breath and legs began feeling very heavy. Patient denies any chest pain or heaviness. Patient states his urinary symptoms have resolved but he does have some abdominal discomfort left over in the left side of the abdomen. Patient has not had any fevers. He has had no vomiting or diarrhea. Patient does have remote history of hypertension and history of prostate cancer. Patient had recent carpal tunnel surgery.] Physical Examination: [HEENT-PERRLA, EOMI. Cranial nerves II through XII grossly intact. TMs clear. Mucous membranes moist. No adenopathy. Cardiovascular-regular rate and rhythm without murmur or ectopy Lungs-clear to auscultation, chest wall stable without crepitus or subcu emphysema Abdomen-normoactive bowel sounds, soft. Patient has tenderness palpation of her left lower quadrant with some mild guarding. There is no rebound, rigidity, or perineal signs. Extremities-intact ?4, normal range of motion, normal pulses, atraumatic] Test Results: [EKG obtained on arrival showed a sinus rhythm with a ventricular rate of 81 bpm with occasional PACs.] CBC with differential obtained showed a white count of 5.4, hemoglobin 10.8, hematocrit 32, platelets 191. Chemistries unremarkable. BUN was 34 creatinine 2.01. Troponin is less than 0.15. Chest x-ray showed nothing acute. CT scan of the abdomen pelvis showed left-sided hydro-nephrosis and hydroureter without obstruction noted. Urinalysis was positive for 500 leukocyte esterase and greater than 100 WBCs. Emergency Department Course and Treatment: [Start Rocephin 1 g IV. Patient was given normal saline. Urine culture sent.] Treatment Plan: [Patient was discussed with hospitalist and the urologist on- call who will evaluate patient tomorrow. Patient will be admitted for IV antibiotics and fluids.] Disposition: [Admit] Impression: [UTI-failed outpatient therapy Pyelonephritis Dizziness] This note was generated with [employer] dictation software. It may contain incorrect words, spelling, and punctuation that were not noted in review of the chart prior to signing ED Disposition - Plan for ED Patient: Referrals: Sarath Wallace MD [Primary Care Provider] -
[2019-01-05 16:55] VITALS: PULSE 70; TEMP 36.8; O2SAT 97
[2019-01-05] MEDS: 0.9% Normal Saline 1,000 ML 150 ML IV (17:02)
[2019-01-05 17:11] LABS: Absolute Lymphocyte Count 0.87 X10^3/ul (0.83-4.51); Absolute Neutrophil Count 3.8 X10^3/uL (2.0-7.7); Basophil# 0.01 X10^3/uL; Basophil% 0.2 % (0-1); Eosinophil# 0.04 X10^3/uL; Eosinophils% 0.7 % (0-5); Hematocrit 32.1 % (40-54); Hemoglobin 10.8 g/dl (13.0-16.5); Lymphocyte # 0.87 X10^3/ul (4.0); Lymphocyte % 16.1 % (19-41); Mean Corp Hgb Conc 33.6 g/gl (32-36); Mean Corpuscular Hgb 30.3 pg (27.0-32.0); Mean Corpuscular Volume 90.2 fL (80-94); Mean Platelet Vol. 10.2 fl (6.2-12.0); Monocyte# 0.65 X10^3/uL; Neutrophil # 3.83 X10^3/uL (2.7-7.7); Neutrophil % 70.6 % (47-70); POSITIVE COUNT NO; POSITIVE DIFFERENTIAL NO; POSITIVE MORPHOLOGY NO; Platelet Count 191 K/mm3 (150-450); RBC Distribution Width CV 13.3 % (11.6-14.6); RBC Distribution Width SD 42.8 fl (35.1-43.9); Red Blood Count 3.56 M/mm3 (4.6-6.2); White Blood Count 5.4 K/mm3 (4.4-11.0)
[2019-01-05 17:28] LABS: Anion Gap 6 (5-15); BUN 34 mg/dL (7-18); BUN/Creat Ratio 16.9 RATIO (10-20); Calcium,Total 9.4 mg/dL (8.5-10.1); Chloride 105 mmol/L (98-107); Creatinine, Serum 2.01 mg/dL (0.70-1.30); EST Glomerular Filtration Rate 34 mL/min (>60); Est Glom Filt Rate - Afr Amer 41 mL/min (>60); Estimated Creatinine Clearance 27.85 ml/min; Glucose 107 mg/dL (74-106); Potassium 3.9 mmol/L (3.5-5.1); Sodium Level 138 mmol/L (136-145)
[2019-01-05 18:07] LABS: Mucous, Urine 0 SEEN /hpf (<or=2+); Squamous Epithelial Cells - UA 0 SEEN /hpf (0-5)
[2019-01-05 18:16] VITALS: PULSE 78; RESP 16; O2SAT 98
[2019-01-05 18:23] VITALS: BP 130/67; BP 130/77; BP 138/83; PULSE 75; PULSE 79; PULSE 89
[2019-01-05 18:26] VITALS: BP 130/67; PULSE 84; RESP 16; TEMP 36.9; O2SAT 99
[2019-01-05 18:27] LABS: Color, Urine Straw (Yellow); Glucose, Dipstick Normal (Normal); Ketone-Dipstick 5 mg/dl (Negative); Leukocyte Esterase-Dipstick 500 /ul (Negative); Nitrite-Dipstick Negative (Negative); Occult Blood-Urine 150 /ul (Negative); Protein-Dipstick 30 mg/dl (Negative); Urine Bilirubin Dipstick Negative (Negative); Urine Clarity Cloudy (Clear); Urine Urobilinogen Normal (Normal); Urine pH 6.5 (5.0 - 8.0)
[2019-01-05 18:47] LABS: White Blood Cells >100 SEEN /hpf (0-5)
[2019-01-05 18:49] LABS: Bacteria RARE /hpf (None Seen); Red Blood Cells-Urine 0-5 SEEN /hpf (0-5)
[2019-01-05] MEDS: Ceftriaxone 1 GM/50 ML BAG IV (19:19)
--- NOTE | 2019-01-05 19:19 | PCM.HP.STD ---
Problem List (1) UTI (urinary tract infection) Status: Acute (2) Chest pain, unspecified Status: Inactive History of Present Illness Date of Admission: 01/05/19 Chief Complaint: rigors The patient is a 83 year old M with a significant history of hypertension; prostate cancer status post 44 radiation and currently getting injections who presented to the emergency department with rigors that started on the same presentation. Associated with his symptoms disequilibrium and inability to stand on his feet. His symptoms started after he had done some mowing. Further, he has low abdominal pain which is more prominent at this left side. Outpatient patient has been on 2 days of antibiotic for urinary tract infection. He denies any change in urinary symptoms. At the baseline because of a history of prostate cancer he has urinary urgency. He reports that early part of December 2018 he got treated for urinary tract infection and as stated the above he is currently being treated with antibiotics (ciprofloxacin)for a recurrence of his UTI. As previously, his urinary tract infection is characterized by lower abdominal pain devoid of any other urinary symptoms. Patient went to the urgent care and was referred to the emergency department. At the emergency department he had some transient episode of shortness of breath. He denies any loss of appetite, nausea or vomiting. Past Medical History Past Medical History (Chronic Problems): Chronic Problems (Last Reviewed 01/06/19 @ 01:48 by Parveen Anderson MD) Prostate cancer (Chronic) Medical History: Medical History (Last Reviewed 01/06/19 @ 01:48 by Parveen Anderson MD) Prostate cancer C61 HTN (hypertension) I10 Allergies No Known Allergies Allergy (Verified 02/14/18 15:37) Home Medications: Ambulatory Orders Medication Instructions Recorded Dutasteride [Avodart] 0.5 mg PO QHS 10/27/17 Ciprofloxacin [Cipro] 500 mg PO BID 01/05/19 Doxazosin Mesylate 4 mg PO QHS 01/05/19 Lisinopril [Zestril] 10 mg PO DAILY 01/05/19 Surgical History: - - Carpal tunnel surgery; 3 weeks ago. Smoking Status: Former smoker - *Family History Maternal History Items: - - No heart disease Paternal History Items: Cancer - Prostate, - Review of Systems Constitutional: Denies: Fever, Weight Change HEENT: Denies: Head Aches, Sinus Congestion, Sinus Drainage Cardiovascular: Denies: Chest Pain, Palpitations Respiratory: Reports: Shortness of Breath. Denies: Cough Gastrointestinal: Reports: Abdominal Pain. Denies: Nausea, Vomiting Genitourinary: Denies: Dysuria Musculoskeletal: Denies: Joint Pain, Joint Tenderness Skin: Denies: Rash, Wounds Neurological: Reports: Change in Speech, Incoordination. Denies: Focal weakness, Numbness, Tingling Psychiatric: Denies: Anxiety, Depression, Homicidal Ideations, Suicidal Ideations Hematologic/ Lymphatic: Denies: Easy Bruising, Easy Bleeding VTE Information - Inpt Only VTE Present on Admission: No VTE Mechan Device Prophylaxis: None VTE Pharm Prophylaxis ordered?: Yes Patient Problems: Active and Suspected Problems (Last Reviewed 01/06/19 @ 01:48 by Parveen Anderson MD) UTI (urinary tract infection) (Acute) - Physical Exam General: Alert, Oriented x3, Cooperative HEENT: Atraumatic, PERRLA, EOMI, Normocephalic Neck: Supple, No JVD, Negative Carotid Bruits Lungs: Clear to auscultation, Normal air movement Cardiovascular: Regular rate, Murmur Abdomen: Bowel Sounds Present, Soft, Tender - Left lower quadrant to the inguinal area Extremities: No edema, Capillary Refill Less than 3 Seconds Skin: No rashes, No breakdown Musculoskeletal: No Tenderness to Palpation of Joints or Extremities Neurological: Cranial nerves II-XII grossly intact Psych/Mental Status: Normal Affect, Appropriate Vital Signs Temp Pulse Resp BP Pulse Ox 98.5 F 84 16 130/67 H 99 01/05/19 18:26 01/05/19 18:26 01/05/19 18:26 01/05/19 18:26 01/05/19 18:26 Oxygen Delivery Method Room Air Weight: 74.843 kg Body Mass Index (BMI) 24.3 Laboratory Tests Past 24 Hrs 01/05/19 01/05/19 01/05/19 17:03 17:03 17:59 WBC 5.4 RBC 3.56 L Hgb 10.8 L Hct 32.1 L MCV 90.2 MCH 30.3 MCHC 33.6 RDW 13.3 RDW Differential 42.8 Plt Count 191 MPV 10.2 Immature Gran % (Auto) 0.400 Neut % (Auto) 70.6 H Lymph % (Auto) 16.1 L [place] % (Auto) 12.0 H Eos % (Auto) 0.7 Baso % (Auto) 0.2 Absolute Neuts (auto) 3.8 Absolute Lymphs (auto) 0.87 Total Counted Not Reportable Sodium 138 Potassium 3.9 Chloride 105 Carbon Dioxide 27.0 Anion Gap 6 BUN 34 H Creatinine 2.01 H Estim Creat Clear Calc 27.85 Est GFR (MDRD) Af Amer 41 L Est GFR (MDRD) Non-Af 34 L BUN/Creatinine Ratio 16.9 Glucose 107 H Calcium 9.4 Troponin I < 0.015 Urine Color Straw Urine Clarity Cloudy Urine pH 6.5 Ur Specific [place] 1.010 Urine Protein 30 H Urine Glucose (UA) Normal Urine Ketones 5 H Urine Occult Blood 150 H Urine Nitrite Negative Urine Bilirubin Negative Urine Urobilinogen Normal Ur Leukocyte Esterase 500 H Urine RBC 0-5 SEEN Urine WBC >100 SEEN Ur Squamous Epith Cells 0 SEEN Urine Bacteria RARE Urine Mucus 0 SEEN Assessment/Plan All Active Problems (Last Reviewed 01/06/19 @ 01:48 by Parveen Anderson MD) Palpitations (Acute) UTI (urinary tract infection) (Acute) The patient is a 83 year old M with a significant history of hypertension; prostate cancer status post 44 radiation currently getting injections who presented to the emergency department with rigors and found to have abnormal urinalysis as well as radiographic evidence of left hydronephrosis; and elevated BUN and creatinine consistent with urinary tract infection; probable pyelonephritis with hydronephrosis. Acute urinary tract infection Probable pyelonephritis. Emergency department labs were reviewed. It showed abnormal urinalysis. Urine culture ordered Patient was was taking ciprofloxacin at home. Ciprofloxacin held at this time Blood cultures ordered. Received ceftriaxone in emergency department. Ceftriaxone continued. Trend CBC and BMP. Left hydronephrosis Patient noted to have elevated BUN and creatinine and radiographic evidence of hydronephrosis. Will keep patient n.p.o. and consult urology. Emergency department doctor discussed case with Dr. Yusuf who is well-known to patient. Reported patient receives some kind of injection with Dr. Yusuf because of his history of prostate cancer. BRYAN Likely obstructive from hydronephrosis. In any case we will hold lisinopril. Trend BMP. Hold nephrotoxic's. Gentle IV hydration. Urology consult as above Trend BMO Hypertension On presentation his blood pressure was not within goal PRN hydralazine ordered Trend blood pressures. Lisinopril held secondary BRYAN BPH On Doxazosin and Finasteride DVT Prophylaxis Subcutaneous heparin Code Visit OBSV E&M: 42140 Initial observation care L3
--- NOTE | 2019-01-05 20:05 | ED.RN ---
CALLED LAB TO LET THEM KNOW THAT ANTIBIOTICS WERE ORDERED AND HUNG BEFORE CULTURES WERE ORDERED AND DRAWN
[2019-01-05 20:14] VITALS: BMI 24.4
[2019-01-05 20:35] VITALS: BP 141/75; PULSE 77; RESP 16; TEMP 36.2; O2SAT 97
[2019-01-05 20:38] VITALS: BMI 22.8
[2019-01-05] MEDS: 0.9% Normal Saline 1,000 ML 100 ML IV (20:52)
[2019-01-05] MEDS: Finasteride 5 MG Tablet PO (21:33)
[2019-01-05] MEDS: Doxazosin 4 MG Tablet PO (21:33)
[2019-01-05] MEDS: Heparin Injection (Vial) 5,000 UNIT/ML VIAL 5000 UNIT SC (21:33)
[2019-01-05] MEDS: 0.9% NaCl Peripheral Flush Adult/Peds IV (21:33)
[2019-01-06 02:30] VITALS: BP 140/78; PULSE 83; RESP 18; TEMP 36.6; O2SAT 97
[2019-01-06 06:51] LABS: International Normalized Ratio 1.1; Prothrombin Time (Protime)PT. 13.7 SECONDS (11.7-14.9)
[2019-01-06 07:03] LABS: Absolute Lymphocyte Count 0.77 X10^3/ul (0.83-4.51); Absolute Neutrophil Count 3.2 X10^3/uL (2.0-7.7); Basophil# 0.01 X10^3/uL; Basophil% 0.2 % (0-1); Eosinophil# 0.09 X10^3/uL; Eosinophils% 1.9 % (0-5); Hematocrit 31.3 % (40-54); Hemoglobin 10.5 g/dl (13.0-16.5); Lymphocyte # 0.77 X10^3/ul (4.0); Lymphocyte % 16.1 % (19-41); Mean Corp Hgb Conc 33.5 g/gl (32-36); Mean Corpuscular Hgb 30.3 pg (27.0-32.0); Mean Corpuscular Volume 90.5 fL (80-94); Mean Platelet Vol. 10.7 fl (6.2-12.0); Monocyte# 0.68 X10^3/uL; Monocyte% 14.3 % (0-10); Neutrophil # 3.21 X10^3/uL (2.7-7.7); Neutrophil % 67.3 % (47-70); Platelet Count 189 K/mm3 (150-450); RBC Distribution Width CV 13.3 % (11.6-14.6); RBC Distribution Width SD 42.8 fl (35.1-43.9); Red Blood Count 3.46 M/mm3 (4.6-6.2); White Blood Count 4.8 K/mm3 (4.4-11.0)
[2019-01-06 07:05] LABS: Anion Gap 9 (5-15); BUN 25 mg/dL (7-18); BUN/Creat Ratio 15.5 RATIO (10-20); Calcium,Total 8.9 mg/dL (8.5-10.1); Chloride 110 mmol/L (98-107); Creatinine, Serum 1.61 mg/dL (0.70-1.30); EST Glomerular Filtration Rate 44 mL/min (>60); Est Glom Filt Rate - Afr Amer 53 mL/min (>60); Glucose 97 mg/dL (74-106); Sodium Level 142 mmol/L (136-145)
[2019-01-06 07:06] LABS: POSITIVE COUNT NO; POSITIVE DIFFERENTIAL NO; POSITIVE MORPHOLOGY NO
--- NOTE | 2019-01-06 07:24 | PCM.CONS.B ---
- Consult Date of Consult: 01/06/19 - Reason for Consult 83 yo male with adv prostate ca, Michael 10 disease focal area on pelvis may be bony met? 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 On admission to the hospital for infection he had a CAT scan done that demonstrated a new left hydronephrosis and hydroureter and blunting calyces on the left side unclear the etiology for this hydronephrosis but the plan is to take in the surgery tomorrow for cystoscopy retrograde and probably stent placement on the left side. ALLERGIES: None MEDICATIONS: No Medications PSH: Biopsy Prostate - 10/25/2017 Cystoscopy TURP - 10/25/2017 Depolupron 1 3 4 Month - 04/01/2018, 12/24/2017 Injection, Degarelix, 1 Mg - 11/18/[address] RT DEVICE/MARKER, PROS - 01/06/2018 Transrectal Biopsy US - 01/06/2018 NON- PSH: Colonoscopy PMH: Metastatic Bony Neoplasm - 12/24/2017 Malignant neoplasm of prostate (Stable) - 11/04/2017, - 10/31/2017 Glasgow Score: 10 Clinical Staging: [id number] Elevated prostate specific antigen [PSA] - 10/17/2017 Nodular prostate with lower urinary tract symptoms - 10/17/2017 Benign prostatic hyperplasia with lower urinary tract symptoms - 10/10/2017 Other retention of urine - 10/10/2017 Frequency of micturition Nocturia Retention of urine, unspecified Unspecified urinary incontinence NON- PMH: Unspecified hearing loss, unspecified ear Immunizations: None FAMILY HISTORY: Prostate Cancer - Father SOCIAL HISTORY: Marital Status: Preferred Language: Occitan; Ethnicity: Not Or ; Race: White Current Smoking Status: Patient has never smoked. Tobacco Use Assessment Completed: Used Tobacco in last 30 days? Smoking cessation counseling was provided. Does not use smokeless tobacco. Excessive Drinker. Does not use drugs. Drinks 3 caffeinated drinks per day. Has not had a blood transfusion. REVIEW OF SYSTEMS: Constitutional: Patient has fever, chills, weight loss, Genitourinary: Patient denies frequent uti's, difficulty starting stream, history of stones, bedwetting, leakage of urine, painful urination, blood in the urine, weak stream/scanty, urinary retention, get up at night to void, and frequent urination. Musculoskeletal: numbness in finger tips. Patient denies sore muscles, back pain, and gout. VITAL SIGNS: 07/14/2018 10:03 AM Weight 159 lb / 72.12 kg Height 68 in / 172.72 cm BP 128/70 mmHg MULTI-SYSTEM PHYSICAL EXAMINATION: Constitutional: Well-nourished. No physical deformities. Normally developed. Good grooming. Neck: Neck symmetrical, not swollen. Normal tracheal position. Respiratory: No labored breathing, no use of accessory muscles. Cardiovascular: Normal temperature, normal extremity pulses, no swelling, no varicosities. Lymphatic: No enlargement of neck, axillae, groin. Skin: No paleness, no jaundice, no cyanosis. No lesion, no ulcer, no rash. Neurologic / Psychiatric: Oriented to time, oriented to place, oriented to person. No depression, no anxiety, no agitation. Gastrointestinal: No mass, no tenderness, no rigidity, non obese abdomen. Eyes: Normal conjunctivae. Normal eyelids. Ears, Nose, Mouth, and Throat: Left ear no scars, no lesions, no masses. Right ear no scars, no lesions, no masses. Nose no scars, no lesions, no masses. Normal hearing. Normal lips. Musculoskeletal: Normal gait and station of head and neck. PAST DATA REVIEWED: PSA Total PSA 0.39 ng/mL 3.87 ng/mL 50.90 ng/mL 27.90 2.93 9.05 ASSESSMENT: 1 : Benign prostatic hyperplasia with lower urinary tract symptoms - s/p TURP 2 Malignant neoplasm of prostate - on treatment. 3 Elevated prostate specific antigen [PSA] - rising psa 4 Metastatic Bony Neoplasm - metastatic disease 5. Left hydronephrosis etiology unclear. PLAN: Patient admitted to the hospital for urinary tract infection with fevers and chills signs of infection, plan to taken tomorrow to surgery for cystoscopy left retropyelogram probably left stent placement etiology of left hydronephrosis is unclear could be from metastatic prostate cancer could be from scar tissue from radiation, likely a source of infection. Today patient had food make him n.p.o. at midnight plan for cystoscopy stent placement tomorrow and surgery.
--- NOTE | 2019-01-06 07:38 | PCM.PN.HOSP ---
Patient Problems: Active and Suspected Problems (Last Reviewed 01/06/19 @ 01:48 by Parveen Anderson MD) UTI (urinary tract infection) (Acute) Subjective: Patient is an 83-year-old gentleman with history of advanced prostate cancer who presented with rigors. Patient was found to have abnormal urinalysis CAT scan demonstrated evidence of new left-sided hydronephrosis Objective: GENERAL: cooperative HEENT: Atraumatic; EYES; Anicteric, Normal Conjunctiva NECK; supple, normal thyroid, RESPIRATORY: Diminished to auscultation CARDIOVASCULAR: Regular S1 S2, GI: soft, non-tender, normoactive bowel sounds, : No Renal angle tenderness; EXTREMITIES: No edema, no clubbing, no cyanosis. MUSCULOSKELETAL: No Joint Tenderness; NEURO: Awake; no lateralizing signs. SKIN: No Rash PSYCH; Normal affect Vitals/I&O's: Vital Signs Temp Pulse Resp BP Pulse Ox 98 F 83 18 140/78 H 97 01/06/19 02:30 01/06/19 02:30 01/06/19 02:30 01/06/19 02:30 01/06/19 02:30 Oxygen Delivery Method Room Air Weight: 72.4 kg Body Mass Index (BMI) 22.8 Intake and Output for Last 24 Hours 01/04/19 01/05/19 01/06/19 23:59 23:59 23:59 Intake Total 1260 / 1260 Balance 1260 / 1260 Laboratory Results 01/05/19 17:03: WBC 5.4, RBC 3.56 L, Hgb 10.8 L, Hct 32.1 L, MCV 90.2, MCH 30.3, MCHC 33.6, RDW 13.3, RDW Differential 42.8, Plt Count 191, MPV 10.2, Immature Gran % (Auto) 0.400, Neut % (Auto) 70.6 H, Lymph % (Auto) 16.1 L, Rains % (Auto) 12.0 H, Eos % (Auto) 0.7, Baso % (Auto) 0.2, Absolute Neuts (auto) 3.8, Absolute Lymphs (auto) 0.87, Total Counted Not Reportable 01/05/19 17:03: Sodium 138, Potassium 3.9, Chloride 105, Carbon Dioxide 27.0, Anion Gap 6, BUN 34 H, Creatinine 2.01 H, Estim Creat Clear Calc 27.85, Est GFR (MDRD) Af Amer 41 L, Est GFR (MDRD) Non-Af 34 L, BUN/Creatinine Ratio 16.9, Glucose 107 H, Calcium 9.4, Troponin I < 0.015 01/05/19 17:59: Urine Color Straw, Urine Clarity Cloudy, Urine pH 6.5, Ur Specific [place] 1.010, Urine Protein 30 H, Urine Glucose (UA) Normal, Urine Ketones 5 H, Urine Occult Blood 150 H, Urine Nitrite Negative, Urine Bilirubin Negative, Urine Urobilinogen Normal, Ur Leukocyte Esterase 500 H, Urine RBC 0-5 SEEN, Urine WBC >100 SEEN, Ur Squamous Epith Cells 0 SEEN, Urine Bacteria RARE, Urine Mucus 0 SEEN 01/06/19 06:25: WBC 4.8, RBC 3.46 L, Hgb 10.5 L, Hct 31.3 L, MCV 90.5, MCH 30.3, MCHC 33.5, RDW 13.3, RDW Differential 42.8, Plt Count 189, MPV 10.7, Immature Gran % (Auto) 0.200, Neut % (Auto) 67.3, Lymph % (Auto) 16.1 L, Rains % (Auto) 14.3 H, Eos % (Auto) 1.9, Baso % (Auto) 0.2, Absolute Neuts (auto) 3.2, Absolute Lymphs (auto) 0.77 L, Total Counted Not Reportable 01/06/19 06:25: PT 13.7, INR 1.1 01/06/19 06:25: Sodium 142, Potassium 4.0, Chloride 110 H, Carbon Dioxide 23.0, Anion Gap 9, BUN 25 H, Creatinine 1.61 H, Estim Creat Clear Calc 35.60, Est GFR (MDRD) Af Amer 53 L, Est GFR (MDRD) Non-Af 44 L, BUN/Creatinine Ratio 15.5, Glucose 97, Calcium 8.9 Current Medications Acetaminophen (Tylenol) 650 mg PO Q6H PRN PRN PRN Reason: Mild Pain (1-3)/Temp > 100.7 F Dextrose (D50w Syringe) 0 gm IV X1 PRN; Protocol PRN Reason: Hypoglycemia Doxazosin Mesylate (Cardura) 4 mg PO QHS [facility] Last Admin: 01/05/19 21:33 Dose: 4 mg Documented by: Finasteride (Proscar) 5 mg PO QHS [facility] Last Admin: 01/05/19 21:33 Dose: 5 mg Documented by: Glucagon () 1 mg IM .X1 PRN PRN Reason: Hypoglycemia Heparin Sodium (Porcine) (Heparin Na) 5,000 unit SC Q12 [facility] Last Admin: 01/05/19 21:33 Dose: 5,000 unit Documented by: Ceftriaxone Sodium (Rocephin) 1 gm in 50 mls @ 100 mls/hr IV Q24 [facility] Sodium Chloride () 250 mls @ 15 mls/hr IV .[id number] PRN PRN Reason: SALINE FLUSH Ondansetron HCl (Zofran) 4 mg IV Q8H PRN PRN PRN Reason: NAUSEA/VOMITING Sodium Chloride () 10 - 40 ml IV UD PRN PRN Reason: SALINE FLUSH Last Admin: 01/05/19 21:33 Dose: 10 ml Documented by: Medical Necessity - Tobacco Use Smoking Status: Former smoker Assessment/Plan All Active Problems (Last Reviewed 01/06/19 @ 01:48 by Parveen Anderson MD) Palpitations (Acute) UTI (urinary tract infection) (Acute) Patient is an 83-year-old gentleman with history of advanced prostate cancer who presented with rigors. Patient was found to have abnormal urinalysis CAT scan demonstrated evidence of new left-sided hydronephrosis 1. Acute pyelonephritis patient admitted to regular nursing floor started on broad-spectrum antibiotic therapy with ceftriaxone consultation was placed to Dr. Yusuf with urology plan is for patient undergo cystoscopy and possible stent placement if needed 2. New onset left-sided hydronephrosis management as discussed above 3. Acute kidney injury do suspect a combination of dehydration as well as obstructive uropathy do expect improvement following relief of patient's obstruction 4. 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 Essential hypertension-blood pressure controlled, 6. DVT Prophylaxis SC heparin Active Medications Acetaminophen (Tylenol) 650 mg PO Q6H PRN PRN PRN Reason: Mild Pain (1-3)/Temp > 100.7 F Dextrose (D50w Syringe) 0 gm IV X1 PRN; Protocol PRN Reason: Hypoglycemia Doxazosin Mesylate (Cardura) 4 mg PO QHS [facility] Last Admin: 01/05/19 21:33 Dose: 4 mg Documented by: Finasteride (Proscar) 5 mg PO QHS [facility] Last Admin: 01/05/19 21:33 Dose: 5 mg Documented by: Glucagon () 1 mg IM .X1 PRN PRN Reason: Hypoglycemia Heparin Sodium (Porcine) (Heparin Na) 5,000 unit SC Q12 [facility] Last Admin: 01/05/19 21:33 Dose: 5,000 unit Documented by: Ceftriaxone Sodium (Rocephin) 1 gm in 50 mls @ 100 mls/hr IV Q24 [facility] Sodium Chloride () 250 mls @ 15 mls/hr IV .[id number] PRN PRN Reason: SALINE FLUSH Ondansetron HCl (Zofran) 4 mg IV Q8H PRN PRN PRN Reason: NAUSEA/VOMITING Sodium Chloride () 10 - 40 ml IV UD PRN PRN Reason: SALINE FLUSH Last Admin: 01/05/19 21:33 Dose: 10 ml Documented by: Clinical Impression(s) from Imaging Studies Chest X-Ray 01/05/19 16:12 IMPRESSION: Stable mild cardiomegaly with hyperexpansion. No acute finding. Electronically Signed: Jean Shannon MD at 16:33 EDT , Service support , Abdomen/Pelvis CT 01/05/19 16:13 IMPRESSION: New since the previous study is extensive left-sided hydronephrosis and hydroureter with perinephric and periureteral inflammatory stranding. No obstructing stone is noted. Findings could be due to recent passage of a stone, nonradiopaque stone or underlying mass lesion. Urologic consultation recommended Stable mild distention of the right UPJ Scattered colonic diverticulosis Right inguinal hernia containing a small bowel loop, no acute inflammation or obstruction noted. Electronically Signed: Elias Cervantes MD at 17:44 EDT , Service support , Code Visit Inpatient E&M: 37080 Subs Hosp L2
[2019-01-06 07:59] VITALS: BP 136/75; PULSE 70; RESP 14; TEMP 36.8; O2SAT 97
--- NOTE | 2019-01-06 10:15 | CASEMGMT ---
RN REBECCA Face to Face with patient for initial transition planning/care coordination assessment. RN CM introduced self and role at [facility]. Patient lying in bed, alert and oriented. Patient willing to participate in assessment and is able to answer all questions appropriately. Care providers, pharmacy, and demographics verified. Patient wishes to discharge home, denies need for home health at this time. Patient states he has no further needs or concerns at this time. CM to follow for discharge planning needs that may arise. PCP: Rodrigo Specialists: None Preferred Pharmacy: [facility] Insurance: [facility] Home Prescription Benefit: Yes Living Will/HPOA: yes, daughter Nikole Prescott HPOA LNOK: daughter and son Living Arrangements: Patient lives alone in 1 story home. Patient is independent and able to ambulate stairs. Transportation: self/family DME/HHC: Patient denies any DME or HHC. Disposition Plan: Patient to discharge home with family support and follow-up plans in place. Massiel JACKMAN, RN, CM
[2019-01-06] MEDS: Ceftriaxone 1 GM/50 ML BAG IV (10:41)
[2019-01-06] MEDS: Heparin Injection (Vial) 5,000 UNIT/ML VIAL 5000 UNIT SC ×2 (10:41→22:05)
[2019-01-06 11:35] VITALS: O2SAT 95
[2019-01-06 14:00] VITALS: BP 132/77; PULSE 66; RESP 16; TEMP 37.1; O2SAT 99
[2019-01-06 19:38] VITALS: BP 147/78; PULSE 87; RESP 18; TEMP 36.4; O2SAT 97
[2019-01-06] MEDS: Doxazosin 4 MG Tablet PO (22:05)
[2019-01-06] MEDS: Finasteride 5 MG Tablet PO (22:05)
[2019-01-07] VITALS (11 sets, daily range): BP systolic 109–147; BP diastolic 59–88; PULSE 65–85; RESP 16–18; TEMP 35.7–36.9; O2SAT 96–100; BMI 22.8; BMI 24.4
[2019-01-07 07:00] LABS: Partial Thromboplast Time 37.4 Seconds (24.1-36.2)
--- NOTE | 2019-01-07 08:06 | PCM.PROGNOTE ---
Patient Problems: Active and Suspected Problems (Last Reviewed 01/06/19 @ 01:48 by Parveen Anderson MD) UTI (urinary tract infection) (Acute) - Physical Exam General: Alert, Oriented x3, Cooperative HEENT: Atraumatic, PERRLA, EOMI, Normocephalic Neck: Supple, No JVD, Negative Carotid Bruits Lungs: Clear to auscultation, Normal air movement Cardiovascular: Regular rate, No murmurs Abdomen: Bowel Sounds Present, Soft, Non Tender Extremities: No edema, Capillary Refill Less than 3 Seconds Skin: No rashes, No breakdown Musculoskeletal: No Tenderness to Palpation of Joints or Extremities Neurological: Cranial nerves II-XII grossly intact Psych/Mental Status: Normal Affect, Appropriate Vital Signs Temp Pulse Resp BP Pulse Ox 97.9 F 80 16 147/88 H 99 01/07/19 01:55 01/07/19 01:55 01/07/19 01:55 01/07/19 01:55 01/07/19 07:22 Oxygen Delivery Method Room Air Weight: 72.4 kg Body Mass Index (BMI) 22.8 Intake and Output for Last 24 Hours 01/05/19 01/06/19 01/07/19 23:59 23:59 23:59 Intake Total 2831 / 2831 0 / 0 Balance 2831 / 2831 0 / 0 Laboratory Tests Past 24 Hrs 01/07/19 06:24 APTT 37.4 H Medical Necessity - Tobacco Use Smoking Status: Former smoker Assessment/Plan All Active Problems (Last Reviewed 01/06/19 @ 01:48 by Parveen Anderson MD) Palpitations (Acute) UTI (urinary tract infection) (Acute) plan for sugery today for cysto and left stent. npo
--- NOTE | 2019-01-07 09:32 | PN_ITS ---
Patient Problems: Active and Suspected Problems (Last Reviewed 01/06/19 @ 01:48 by Parveen Anderson MD) UTI (urinary tract infection) (Acute) Subjective: Patient seen plan is for patient to undergo cystoscopy and possible left ureteral stent placement ; he reports a restless night due to frequent checks on him Objective: GENERAL: cooperative HEENT: Atraumatic; EYES; Anicteric, Normal Conjunctiva NECK; supple, normal thyroid, RESPIRATORY: Diminished to auscultation CARDIOVASCULAR: Regular S1 S2, GI: soft, non-tender, normoactive bowel sounds, : No Renal angle tenderness; EXTREMITIES: No edema, no clubbing, no cyanosis. MUSCULOSKELETAL: No Joint Tenderness; NEURO: Awake; no lateralizing signs. SKIN: No Rash PSYCH; Normal affect Vitals/I&O's: Vital Signs Temp Pulse Resp BP Pulse Ox 97.9 F 80 16 147/88 H 99 01/07/19 01:55 01/07/19 01:55 01/07/19 01:55 01/07/19 01:55 01/07/19 07:22 Oxygen Delivery Method Room Air Weight: 72.4 kg Body Mass Index (BMI) 22.8 Intake and Output for Last 24 Hours 01/05/19 01/06/19 01/07/19 23:59 23:59 23:59 Intake Total 2831 / 2831 0 / 0 Balance 2831 / 2831 0 / 0 Laboratory Results 01/07/19 06:24: APTT 37.4 H Current Medications Acetaminophen (Tylenol) 650 mg PO Q6H PRN PRN PRN Reason: Mild Pain (1-3)/Temp > 100.7 F Dextrose (D50w Syringe) 0 gm IV X1 PRN; Protocol PRN Reason: Hypoglycemia Doxazosin Mesylate (Cardura) 4 mg PO QHS [facility] Last Admin: 01/06/19 22:05 Dose: 4 mg Documented by: Finasteride (Proscar) 5 mg PO QHS [facility] Last Admin: 01/06/19 22:05 Dose: 5 mg Documented by: Glucagon () 1 mg IM .X1 PRN PRN Reason: Hypoglycemia Heparin Sodium (Porcine) (Heparin Na) 5,000 unit SC Q12 [facility] Last Admin: 01/06/19 22:05 Dose: 5,000 unit Documented by: Ceftriaxone Sodium (Rocephin) 1 gm in 50 mls @ 100 mls/hr IV Q24 [place] Last Admin: 01/06/19 10:41 Dose: 100 mls/hr Documented by: Sodium Chloride () 250 mls @ 15 mls/hr IV .[id number] PRN PRN Reason: SALINE FLUSH Ondansetron HCl (Zofran) 4 mg IV Q8H PRN PRN PRN Reason: NAUSEA/VOMITING Sodium Chloride () 10 - 40 ml IV UD PRN PRN Reason: SALINE FLUSH Last Admin: 01/05/19 21:33 Dose: 10 ml Documented by: Medical Necessity - Tobacco Use Smoking Status: Former smoker Assessment/Plan All Active Problems (Last Reviewed 01/06/19 @ 01:48 by Parveen Anderson MD) Palpitations (Acute) UTI (urinary tract infection) (Acute) Patient is an 83-year-old gentleman with history of advanced prostate cancer who presented with rigors. Patient was found to have abnormal urinalysis CAT scan demonstrated evidence of new left-sided hydronephrosis 1. Acute pyelonephritis patient admitted to regular nursing floor started on broad-spectrum antibiotic therapy with ceftriaxone consultation was placed to Dr. Yusuf with urology plan is for patient undergo cystoscopy and possible stent placement if needed ~ 01/07/2019; plan is for patient to undergo cystoscopy and possible left ureteral stent placement 2. New onset left-sided hydronephrosis management as discussed above 3. Acute kidney injury do suspect a combination of dehydration as well as obstructive uropathy do expect improvement following relief of patient's obstruction 4. 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 Essential hypertension-blood pressure controlled, 6. DVT Prophylaxis SC heparin Code Visit Inpatient E&M: 92428 Subs Hosp L2
[2019-01-07] MEDS: Ceftriaxone 1 GM/50 ML BAG IV (09:52)
[2019-01-07] MEDS: 0.9% NaCl Peripheral Flush Adult/Peds IV (09:52)
[2019-01-07] MEDS: Dext 5%-0.45% NS 1,000 ML 75 ML IV (09:58)
--- NOTE | 2019-01-07 13:02 | PCM.OPRPT ---
Report of Operation Date of Procedure: 01/07/19 Pre-Operative Diagnosis: Left hydronephrosis new onset history of metastatic prostate cancer Post-Operative Diagnosis: The same Surgery/Procedure Performed:: Cystoscopy, left retrograde pyelogram, transurethral resection of the left ureteral orifice, left retrograde pyelogram interpretation of fluoroscopic images, left stent placement Description of Surgical Findings:: 83-year-old male presented to the hospital with an infection CAT scan was done demonstrated new onset of left hydronephrosis he has a history of Michael 10 prostate cancer treated with radiation therapy is also on hormone deprivation therapy came in with an infection. Because of the new onset of hydronephrosis recommend to be taken to surgery place a stent on the left side and understands it is possible that the etiology of this hydronephrosis could be scar tissue, radiation injury, could be from cancer. 83-year-old male taken back to the operating room with us with induction of general anesthesia, penis and testicles were prepped and draped in usual sterile fashion, timeout was performed, and then went into the bladder with a 21 [place] rigid cystourethroscope, on inspection the entire length the urethra is normal, the sphincter was intact, the prostate was resected from prior TURP and had a nice wide open channel, then inside the bladder had a heavily trabeculated bladder, the floor the bladder and the trigone was scarred from radiation, then the left ureteral orifice was identified it was very stenotic, identify the right ureteral orifice which is somewhat stenotic with still effluxing, I cannulated the left ureteral orifice try to cannulate this with a 0.38 wire but is too big so I went to a 0.25 wire on the second try was able to get the wire up once a wires in place I tried to advance a Pollack catheter over the wire into the ureter however it is because of the coil and fell outside with the wire back up and then left the wire in place it was removed the cystoscope and then went back in with a resectoscope and then I performed a resection above the wire over the left ureteral orifice this opened up the scar tissue above the left ureter appeared to be radiation injury scar tissue and then over the wire was able to advance a Pollick catheter once the scar tissue had been cut out but the Pollack catheter up in the kidney injected contrast and interpreted the fluoroscopic images could see the contrast up in the kidney, then through the Pollick catheter advanced a 0.38 stiff stent this allowed me to then advance a new stent over the wire backloaded the Pollick catheter office wire and then over the wire advanced a 7 [place] by 26 cm stent once is in good position and pulled the wire and the extent: Kidney bladder good position draining the bladder drained the bladder and the stent was draining the kidney. Patient anesthetic was reversed for good back the PACU good condition he can go home in about 24 hours and he can follow-up in my office. Type of Anesthesia:: General Specimen's removed: none Drains: stent left side 7 fr x 26 cm - Admit VTE Documentation VTE Present on Admission: No VTE Mechan Device Prophylaxis: SCD's
[2019-01-07] MEDS: Finasteride 5 MG Tablet PO (22:04)
[2019-01-07] MEDS: Heparin Injection (Vial) 5,000 UNIT/ML VIAL 5000 UNIT SC (22:04)
[2019-01-07] MEDS: Doxazosin 4 MG Tablet PO (22:04)
[2019-01-08 01:46] VITALS: BP 157/91; PULSE 73; RESP 16; TEMP 36.4; O2SAT 97
[2019-01-08 08:00] VITALS: BP 123/71; PULSE 70; RESP 16; TEMP 37.2; O2SAT 98
--- NOTE | 2019-01-08 08:49 | DCINST_ITS ---
- Discharge Diagnoses Current Active Problems: Current Active and Chronic Problems (Last Reviewed 01/06/19 @ 01:48 by Parveen Anderson MD) UTI (urinary tract infection) (Acute) You will use the following diet at home:: No restrictions Allergies/Adverse Reactions: Allergies No Known Allergies Allergy (Verified 02/14/18 15:37) Medications to take at Discharge Dutasteride [Avodart] 0.5 mg PO QHS 10/27/17 Doxazosin Mesylate 4 mg PO QHS 01/05/19 Lisinopril [Zestril] 10 mg PO DAILY 01/05/19 Cephalexin [Keflex] 500 mg PO Q12 #10 cap 01/08/19 The following prescriptions were given: Cephalexin [Keflex] 500 mg PO Q12 #10 cap Transmission Status: Pending to [id number] Primary Care Physician: Sarath Wallace MD [Primary Care Provider] - Please follow up with your Primary Care Physician in: in 5-7days Test Results: Test results from this visit will be discussed in further detail at your follow- up appointment, if applicable. Please Follow Up With: Delta Yusuf MD When: in 1-2 weeks Proposed Discharge Date: 01/08/19
--- NOTE | 2019-01-08 08:50 | PCM.DC.SUM ---
Discharge Date and Diagnosis - Problem List Patient Problems: Active and Suspected Problems (Last Reviewed 01/06/19 @ 01:48 by Parveen Anderson MD) UTI (urinary tract infection) (Acute) Date of Admission: 01/05/19 Date of Discharge: 01/08/19 - Primary Discharge Diagnosis Active and Suspected Problems (Last Reviewed 01/06/19 @ 01:48 by Parveen Anderson MD) UTI (urinary tract infection) (Acute) - Secondary Discharge Diagnosis Chronic Problems (Last Reviewed 01/06/19 @ 01:48 by Parveen Anderson MD) Prostate cancer (Chronic) Hospital Course and Treatment Imaging Results: Clinical Impression(s) from Imaging Studies Chest X-Ray 01/05/19 16:12 IMPRESSION: Stable mild cardiomegaly with hyperexpansion. No acute finding. Electronically Signed: Jean Shannon MD at 16:33 EDT , Service support , Abdomen/Pelvis CT 01/05/19 16:13 IMPRESSION: New since the previous study is extensive left-sided hydronephrosis and hydroureter with perinephric and periureteral inflammatory stranding. No obstructing stone is noted. Findings could be due to recent passage of a stone, nonradiopaque stone or underlying mass lesion. Urologic consultation recommended Stable mild distention of the right UPJ Scattered colonic diverticulosis Right inguinal hernia containing a small bowel loop, no acute inflammation or obstruction noted. Electronically Signed: Elias Cervantes MD at 17:44 EDT , Service support , Operations: None Summary of Care Provided: Patient is an 83-year-old gentleman with history of advanced prostate cancer who presented with rigors. Patient was found to have abnormal urinalysis CAT scan demonstrated evidence of new left-sided hydronephrosis 1. Acute pyelonephritis patient admitted to regular nursing floor started on broad-spectrum antibiotic therapy with ceftriaxone consultation was placed to Dr. Yusuf; patient underwent cystoscopy, left retrograde pyelogram, transurethral resection of the left ureteral orifice, left retrograde pyelogram interpretation of fluoroscopic images, left stent placement on 01/07/2019. Urine cultures came back negative. 2. New onset left-sided hydronephrosis management as discussed above 3. Acute kidney injury do suspect a combination of dehydration as well as obstructive uropathy do expect improvement following relief of patient's obstruction 4. Advanced prostate cancer treated with radiation therapy as well as hormonal therapy 5. Bladder outlet obstruction patient is on finasteride as well as doxazosin 6. Essential hypertension-blood pressure controlled, 7. DVT Prophylaxis SC heparin Patient Problems: Active and Suspected Problems (Last Reviewed 01/06/19 @ 01:48 by Parveen Anderson MD) UTI (urinary tract infection) (Acute) Objective: GENERAL: cooperative HEENT: Atraumatic; EYES; Anicteric, Normal Conjunctiva NECK; supple, normal thyroid, RESPIRATORY: Diminished to auscultation CARDIOVASCULAR: Regular S1 S2, GI: soft, non-tender, normoactive bowel sounds, : No Renal angle tenderness; SKIN: No Rash PSYCH; Normal affect - Physical Exam Vital Signs Temp Pulse Resp BP Pulse Ox 98.9 F 70 16 123/71 H 98 01/08/19 08:00 01/08/19 08:00 01/08/19 08:00 01/08/19 08:00 01/08/19 08:00 Oxygen Delivery Method Room Air Weight: 72.4 kg Body Mass Index (BMI) 22.8 Intake and Output for Last 24 Hours 01/06/19 01/07/19 01/08/19 23:59 23:59 23:59 Intake Total 2831 / 2831 800 / 800 900 / 900 Output Total 750 / 750 900 / 900 Balance 2831 / 2831 50 / 50 0 / 0 Microbiology Past 72 Hours 01/05/19 17:59 Urine Culture - Final Urine, Clean Catch Culture exhibits no growth. Discharge Diet: No Restrictions Discharge Activity: Return to Normal Activity Home Medications: Medications to take at Discharge Dutasteride [Avodart] 0.5 mg PO QHS 10/27/17 Doxazosin Mesylate 4 mg PO QHS 01/05/19 Lisinopril [Zestril] 10 mg PO DAILY 01/05/19 Cephalexin [Keflex] 500 mg PO Q12 #10 cap 01/08/19 Following Prescrptions Were Given to Patient: Cephalexin [Keflex] 500 mg PO Q12 #10 cap Transmission Status: Pending to [id number] Primary Care Physician: Sarath Wallace MD [Primary Care Provider] - Please follow up with your Primary Care Physician in: in 5-7days Please Follow Up With: Delta Yusuf MD When: in 1-2 weeks Disposition: Home Minutes spent on discharge:: 35 Patient Condition:: Stable Medical Necessity - Tobacco Use Smoking Status: Former smoker Meaningful Use Info Meaningful Use Diagnoses (Choose all that apply): None applicable Code Visit Inpatient E&M: 18663 Disch Hosp
--- NOTE | 2019-01-08 09:07 | PCM.PN.BLA ---
Progress Note okay to go home follow up with me after dischage
[2019-01-08] MEDS: Ceftriaxone 1 GM/50 ML BAG IV (09:24)
[2019-01-08 10:09] VITALS: BP 120/71; PULSE 70; RESP 16; TEMP 37.1; O2SAT 98
[2019-01-08 10:39] VITALS: O2SAT 97
--- NOTE | 2019-01-09 15:42 | CASEMGMT ---
Case Management DC Follow Up Call: Discharge Date: 01/08/2019 DC Diagnosis: UTI DC Disposition: Home LACE/STRATA: 04/09 Called patient listed Cell Phone on Demographics. VM did verify correct patient. CM left a VM to return call if patient has any questions, issues, or concerns regarding ACI, Rx, or F/u appointment. APOLINAR Campbell
== END 2019-01-08 10:41 | disposition home or self-care (01) | DRG 660 ==
LOC: ED 16:40 → MS3 20:06
PROVIDERS: Urology; Admitting Provider Hospitalist; Emergency Provider Emergency Medicine; Family Provider Internal Medicine; PCP Internal Medicine; Visit Provider Internal Medicine
PROC: 0TB78ZZ Excision of Left Ureter, Via Natural or Artificial Opening Endoscopic (ICD-10-PCS; CPT 52332; principal; 2019-01-07 12:55)
DX: N10 Acute pyelonephritis (principal); C79.51 Secondary malignant neoplasm of bone; N17.9 Acute kidney failure, unspecified; N32.0 Bladder-neck obstruction; N13.6 Pyonephrosis; C61 Malignant neoplasm of prostate; I10 Essential (primary) hypertension; E86.0 Dehydration; Z92.3 Personal history of irradiation
CPT/HCPCS: 36415; 71045; 74176; 76000; 80048; 81001; 84484; 85025; 85610; 85730; 87040; 87086; 93005; 97161; 99285; J7030; A4216; C1726; C1769; C1874; J2405; J7799

== ENCOUNTER 2019-02-09 17:41 | Emergency (ER) | payer MEDICARE, OTHER, SELFPAY ==
[2019-01-07 09:40] VITALS: BMI 22.8
[2019-02-09 17:41] VITALS: BP 147/84; PULSE 90; RESP 16; TEMP 35.9; BMI 24.0
--- NOTE | 2019-02-09 19:56 | ED.VIS.GEN ---
History of Present Illness Chief Complaint: Wound Detail of Chief Complaint: Left forearm wound Informant: Patient Onset: Yesterday Current Severity: Mild Maximum Severity: Mild Narrative: Patient scraped his left volar forearm against the steering wheel of a tractor yesterday. He has a V-shaped skin avulsion. Patient states he cleaned the area good last night for antibiotic ointment on it today. He does want to have it checked. He is unsure of his last tetanus update. Past Medical History - Allergies and Home Meds Allergies/Adverse Reactions: Allergies No Known Allergies Allergy (Verified 02/14/18 15:37) Primary Care Physician: Sarath Wallace MD [Primary Care Provider] - 1-2 Weeks Surgical History: - - Carpal tunnel surgery; 3 weeks ago. Smoking Status: Never smoker - Family History Paternal Family History: Reports: Cancer - Prostate, - Maternal Family History: Reports: - - No heart disease Review of Systems General: Denies: Chills, Fever Eyes: Denies: Visual changes - bilaterally ENT: Denies: Bilateral ear pain Cardiovascular: Denies: Chest pain Respiratory: Denies: Dyspnea Gastrointestinal: Denies: Abdominal pain Musculoskeletal: Reports: Arthralgias Skin: Reports: Wounds. Denies: Rash Neurological: Reports: Headache Hematologic: Denies: Easy bruising, Easy bleeding Allergy: Denies: Uticaria Physical Exam Vital Signs/Narrative: Vital Signs Temp Pulse Resp BP 02/09/19 17:41 96.7 F L 90 16 147/84 H General: Well nourished, Well developed ENT: Moist mucous membranes Neck: Supple Cardiovascular: Regular rate, Regular rhythm Respiratory: No distress, CTA bilaterally Abdomen: Soft, Nontender Extremities: - - Patient has a V-shaped skin tear on the volar left forearm. Each side of the V is approximately 2 cm in length. No surrounding hematoma or tenderness. No bleeding. Neurological: Alert, Normal Strength, Normal Sensation Psychological: Normal affect Diagnostic/Tx/Re-eval - Medical Decision Making Wound is dressed. Wound care instructions were given. Tetanus update is provided. ED Disposition - Plan for ED Patient: Disposition: Home or Assisted Living Diagnosis: Skin tear of left forearm without complication Instructions: Skin Avulsion Referrals: Sarath Wallace MD [Primary Care Provider] - 1-2 Weeks
[2019-02-09] MEDS: Diphth,Pertuss(Acell),Tet Vac 0.5 ML Vial IM (20:05)
== END 2019-02-09 20:13 | disposition home or self-care (01) ==
PROVIDERS: Emergency Provider Emergency Medicine; Family Provider Internal Medicine; PCP Internal Medicine
DX: S51.812A Laceration without foreign body of left forearm, initial encounter (principal); Z23 Encounter for immunization; W26.8XXA Contact with other sharp object(s), not elsewhere classified, initial encounter; Y93.89 Activity, other specified; Y92.008 Other place in unspecified non-institutional (private) residence as the place of occurrence of the external cause; Y99.8 Other external cause status
CPT/HCPCS: 90471; 90715; 99282

== ENCOUNTER → 2019-04-28 | Outpatient (CLI) | payer MEDICARE, OTHER, SELFPAY ==
[2019-04-28 11:25] LABS: PSA,Total- Diagnostic 7.96 ng/mL (0.0-4.0)
== END | disposition home or self-care (01) ==
LOC: LAB 09:37
PROVIDERS: Family Provider Internal Medicine; PCP Internal Medicine; Referring Provider Urology; Visit Provider Urology
DX: R97.20 Elevated prostate specific antigen [PSA] (principal)
CPT/HCPCS: 36415; 84153

== ENCOUNTER → 2019-06-05 11:16 | Outpatient (CLI) | payer MEDICARE, OTHER, SELFPAY ==
[2019-06-05 12:17] LABS: AST(SGOT) 29 U/L (15-37); Alanine Aminotransfer ALT/SGPT 30 U/L (16-61); Albumin, Serum 3.6 g/dL (3.2-5.0); Alkaline Phosphatase 81 U/L (45-117); Anion Gap 9 (5-15); BUN 30 mg/dL (7-18); BUN/Creat Ratio 19.6 RATIO (10-20); Calcium,Total 8.8 mg/dL (8.5-10.1); Chloride 105 mmol/L (98-107); Creatinine, Serum 1.53 mg/dL (0.70-1.30); EST Glomerular Filtration Rate 46 mL/min (>60); Est Glom Filt Rate - Afr Amer 56 mL/min (>60); Globulin 3.6 g/dL (2.2-4.2); Glucose 91 mg/dL (74-106); Potassium 4.3 mmol/L (3.5-5.1); Protein, Total 7.2 g/dL (6.4-8.2); Sodium Level 140 mmol/L (136-145)
== END ==
PROVIDERS: Family Provider Internal Medicine; PCP Internal Medicine; Referring Provider Urology; Visit Provider Urology
DX: C61 Malignant neoplasm of prostate (principal)
CPT/HCPCS: 36415; 80048; 80076; 84153

== ENCOUNTER → 2019-07-23 10:56 | Outpatient (CLI) | payer MEDICARE, OTHER, SELFPAY ==
--- NOTE | 2019-07-23 10:57 | RAD_ITS ---
STUDY: X-RAY - PELVIS AND BILATERAL HIPS REASON FOR EXAM: Bilateral hip pain for 20 days, history of prostate carcinoma. TECHNIQUE: AP view of the pelvis.? 2 views of the right hip, and 2 views of the left hip were obtained. COMPARISON: CT images of the pelvis 01/05/2019. FINDINGS: There are seeds within the region of the prostate. There is a sclerotic lesion in the third vertebral body and a small sclerotic lesion in the right iliac wing, possible metastases as previously described. Normal bilateral superior and inferior pubic rami. Normal pubic symphysis. Normal bilateral ischial tuberosities. Normal visualized right femoral head. Normal right acetabulum. Normal right hip joint. Normal visualized left femoral head. Normal left acetabulum. Normal left hip joint. RAD/Hips B/L min 2 views w/ Pelvis IMPRESSION: Sclerotic lesions in the third vertebral body and right iliac wing, possible metastases as previously described. Otherwise, unremarkable x-ray examination of the pelvis and bilateral hips. Electronically Signed: Man Quinones MD at 11:41 EST Tel , Service support ,
== END ==
PROVIDERS: PCP Internal Medicine; Referring Provider Urology; Visit Provider Urology
DX: C61 Malignant neoplasm of prostate (principal); M25.551 Pain in right hip; M25.552 Pain in left hip
CPT/HCPCS: 36415; 73521; 84153

== ENCOUNTER → 2019-10-29 11:05 | Outpatient (CLI) | payer MEDICARE, OTHER, SELFPAY ==
--- NOTE | 2019-10-29 11:20 | RAD_ITS ---
STUDY: X-RAY - PELVIS AND BILATERAL HIPS REASON FOR EXAM: Male, 83 years old. BILAT HIP PAIN, NKI, BONE CA TECHNIQUE: AP view of the pelvis.? 2 views of the right hip, and 2 views of the left hip were obtained. COMPARISON: Comparison is made with prior examination dated January 21, 2020. FINDINGS: There is a non-specific bowel gas pattern. Radiation seeds are seen within the prostate. Sclerosis of the L3 vertebrae. There is a 2 cm sclerotic focus along the lateral aspect of the left iliac wing as well as 7.8 mm sclerosis in the mid right iliac wing. There is also evidence of 4.8 cm x 2.1 cm sclerosis overlying the left sacral wing. This is unchanged. Normal bilateral superior and inferior pubic rami. Normal pubic symphysis. Normal bilateral ischial tuberosities. RAD/Hips B/L min 2 views w/ Pelvis IMPRESSION: Sclerotic foci as described. This is suggestive of metastatic deposits. Electronically Signed: Venu Quionnes, at 15:21 EDT , Service support ,
== END ==
LOC: LAB.FUTURE 11:10 → LAB 10-30 06:39
PROVIDERS: PCP Internal Medicine; Referring Provider Urology; Visit Provider Urology
DX: M25.551 Pain in right hip (principal); M25.552 Pain in left hip; C61 Malignant neoplasm of prostate
CPT/HCPCS: 36415; 73521; 84153

== ENCOUNTER → 2019-11-04 | Outpatient (CLI) | payer MEDICARE, OTHER, SELFPAY ==
--- NOTE | 2019-11-04 13:13 | CT_ITS ---
STUDY: CT LUMBAR SPINE WITHOUT CONTRAST REASON FOR EXAM: Male, 84 years old. Rad planning,PROSTATE CA, RISING PSA, BONE METS RADIATION DOSAGE (If Supplied By Facility): CTDIvol = ( 24.62 ) mGy, DLP = ( 1090.34 ) mGycm TECHNIQUE: The patient was scanned in a multi detector CT scanner. High resolution transaxial imaging was performed. Images were obtained from L1 to S1 vertebral level. Individualized dose optimization techniques were used for this CT. COMPARISON: None FINDINGS: Small gallstones are seen within the gallbladder. Atherosclerotic plaque formation of the abdominal aorta and visualized common iliac arteries.. 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 Electronically Signed: Venu Quinones, at 13:44 EDT , Service support ,
--- NOTE | 2019-11-04 13:13 | CT_ITS ---
STUDY: CT PELVIS WITHOUT CONTRAST REASON FOR EXAM: Male, 84 years old. Rad planning,PROSTATE CA, RISING PSA, BONE METS RADIATION DOSAGE (If Supplied By Facility): CTDIvol = ( 24.62 ) mGy, DLP = ( 1090.34 ) mGycm TECHNIQUE: Transaxial imaging of the pelvis was performed with oral contrast, and without intravenous administration of contrast material. Individualized dose optimization techniques were used for this CT. COMPARISON: None. FINDINGS: Mild to moderate degree of diffuse bladder wall thickening although the bladder is not completely distended. There is evidence of a prior TURP. Metallic radiation seeds are seen within the prostate. Normal visualized small intestine. There are multiple colonic diverticula of the sigmoid colon consistent with chronic diverticulosis. There is no pelvic fluid. There is no pelvic mass lesion or lymphadenopathy. There is diffuse atherosclerotic calcification of the pelvic arteries with elongation and tortuosity. Atherosclerotic plaque formation of the distal abdominal aorta. Normal abdominal wall. Lytic and osteoblastic metastasis is seen in the visualized lower lumbar spine as well as the pelvic bones bilaterally. CT/Pelvis without IV Contrast IMPRESSION: Bony metastasis. Mild to moderate diffuse bladder wall thickening. Prior TURP. Electronically Signed: Venu Quinones, at 13:41 EDT , Service support ,
== END | disposition home or self-care (01) ==
LOC: CT 12:52
PROVIDERS: PCP Internal Medicine; Referring Provider Radiology Radiation Oncology; Visit Provider Radiology Radiation Oncology
DX: C61 Malignant neoplasm of prostate (principal); C79.51 Secondary malignant neoplasm of bone; R97.21 Rising PSA following treatment for malignant neoplasm of prostate
CPT/HCPCS: 72131; 72192

== ENCOUNTER 2019-11-09 05:15 | Emergency (ER) | payer MEDICARE, OTHER, SELFPAY ==
[2019-11-09 05:16] VITALS: BP 166/91; PULSE 110; RESP 16; TEMP 36.8; O2SAT 96; BMI 23.2
--- NOTE | 2019-11-09 06:07 | ED.DCSUM_ITS ---
- ER Visit Summary Date of Service: 11/09/19 Chief Complaint: Urinary retention and hematuria History of Present Illness: The patient is a 84 M who presents with urinary retention and hematuria that began this morning. Patient states that he got up to use the bathroom approximately 2:30 AM today and was only able to pass a very small amount. Patient noted some blood with this. Patient states he feels like his bladder is getting more distended. Patient denies any dysuria when he urinated this morning. Patient denies any fevers or chills. Patient denies any nausea or vomiting. Patient denies any back pain or neck pain. Patient denies any chest pain or shortness of breath. Patient states he has a history of prostate cancer and is scheduled to see Dr. Yusuf today. Physical Examination: Vital signs are stable. Patient is afebrile. Patient is in no acute distress. Oral mucosa is pink and moist. Neck is supple. Trachea is midline. There is no JVD. Heart was regular rate and rhythm. Lungs are clear and equal bilaterally. Abdomen is soft. Bowel sounds are normal. There is mild suprapubic tenderness. Bladder was distended. Cranial nerves II through XII are intact. There are no focal motor or sensory deficits noted. Extremities are intact. There is no calf tenderness or edema. Test Results: CBC shows a mild anemia with a hemoglobin of 11.6 hematocrit 34.9. Comprehensive metabolic profile shows a BUN of 23 and a creatinine of 1.78. Urinalysis shows occult blood of 250 with greater than 100 red blood cells. There is no evidence of urinary tract infection. Emergency Department Course and Treatment: A three-way Blackwood catheter was inserted and the bladder was irrigated. Patient was feeling better after this. Patient was instructed to follow-up with Dr. Yusuf today as scheduled. Patient understood and was agreeable with the plan. All questions were answered. Disposition: Discharge home Impression: 1. Hematuria 2. Urinary retention This note was generated with [employer] dictation software. It may contain incorrect words, spelling, and punctuation that were not noted in review of the chart prior to signing ED Disposition - Plan for ED Patient: Disposition: Home or Assisted Living Diagnosis: Hematuria, Urinary retention Instructions: ED Hematuria, ED Blackwood Catheter Care Referrals: Sarath Wallace MD [Primary Care Provider] - 5-7 Days Delta Yusuf MD [STAFF PHYSICIAN] - Keep Keila appointment
[2019-11-09 06:11] LABS: Absolute Lymphocyte Count 1.24 X10^3/uL (0.83-4.51); Bacteria 0 SEEN /hpf (None Seen); Basophil# 0.05 X10^3/uL; Basophil% 0.7 % (0-1); Eosinophil# 0.08 X10^3/uL; Eosinophils% 1.1 % (0-5); Hematocrit 34.9 % (40-54); Hemoglobin 11.6 g/dL (13.0-16.5); Lymphocyte # 1.24 X10^3/ul (4.0); Lymphocyte % 16.9 % (19-41); Mean Corp Hgb Conc 33.2 g/dL (32-36); Mean Corpuscular Volume 96.1 fL (80-94); Mean Platelet Vol. 8.6 fl (6.2-12.0); Monocyte# 0.73 X10^3/uL; Monocyte% 9.9 % (0-10); Mucous, Urine 0 SEEN /hpf (<or=2+); NRBC Flagged by Analyzer 0 % (0-5); Neutrophil # 4.98 X10^3/uL (2.7-7.7); Neutrophil % 67.9 % (47-70); Platelet Count 372 K/mm3 (150-450); RBC Distribution Width CV 12.8 % (11.6-14.6); RBC Distribution Width SD 44.5 fl (35.1-43.9); Red Blood Count 3.63 M/mm3 (4.6-6.2); Squamous Epithelial Cells - UA 0 SEEN /hpf (0-5); White Blood Cells 0 SEEN /hpf (0-5); White Blood Count 7.3 K/mm3 (4.4-11.0)
[2019-11-09 06:13] LABS: Color, Urine Red (Yellow); Glucose, Dipstick Normal (Normal); Ketone-Dipstick 5 mg/dl (Negative); Leukocyte Esterase-Dipstick 500 /ul (Negative); Nitrite-Dipstick Negative (Negative); Occult Blood-Urine 250 /ul (Negative); Protein-Dipstick 500 mg/dl (Negative); Specific Gravity, Urine 1.015 (1.002-1.030); Urine Bilirubin Dipstick Negative (Negative); Urine Clarity Cloudy (Clear); Urine Urobilinogen Normal (Normal)
[2019-11-09 06:21] LABS: Red Blood Cells-Urine > 100 SEEN /hpf (0-5)
[2019-11-09] MEDS: Lidocaine Jelly 2% 20 ML Syringe (URO-JET) 20 APPLIC TOPICAL (06:21)
[2019-11-09 06:25] LABS: Anion Gap 6 (5-15); BUN 23 mg/dL (7-18); BUN/Creat Ratio 12.9 RATIO (10-20); Calcium,Total 8.8 mg/dL (8.5-10.1); Chloride 104 mmol/L (98-107); Creatinine, Serum 1.78 mg/dL (0.70-1.30); EST Glomerular Filtration Rate 39 mL/min (>60); Est Glom Filt Rate - Afr Amer 47 mL/min (>60); Estimated Creatinine Clearance 30.89 ml/min; Glucose 98 mg/dL (74-106); Potassium 4.1 mmol/L (3.5-5.1); Sodium Level 139 mmol/L (136-145)
[2019-11-09 06:52] VITALS: BP 130/80; PULSE 86; RESP 16; O2SAT 99
== END 2019-11-09 07:25 | disposition home or self-care (01) ==
PROVIDERS: Emergency Provider Emergency Medicine; PCP Internal Medicine
DX: R33.9 Retention of urine, unspecified (principal); R31.9 Hematuria, unspecified; Z85.46 Personal history of malignant neoplasm of prostate
CPT/HCPCS: 51702; 80048; 81001; 85025; 99284; A4216

== ENCOUNTER → 2019-12-01 09:00 | Outpatient (CLI) | payer MEDICARE, OTHER, SELFPAY ==
[2019-11-09 05:16] VITALS: BMI 23.2
== END ==
PROVIDERS: PCP Internal Medicine; Referring Provider Urology; Visit Provider Urology
DX: N39.0 Urinary tract infection, site not specified (principal)
CPT/HCPCS: 87086; 87088; 87186